=== PATIENT | male | born 1960 | race Caucasian/White ===

== ENCOUNTER → 2016-08-13 | Outpatient (CLI) | payer OTHER | END | disposition home or self-care (01) | LOC: PTMAIN 08:38 | PROVIDERS: ATTEND Otolaryngology | DX: K21.9 Gastro-esophageal reflux disease without esophagitis (principal); R05 Cough | CPT/HCPCS: 31579 ==

== ENCOUNTER → 2016-10-07 | Outpatient (CLI) | payer OTHER ==
--- NOTE | 2016-10-07 15:56 | CT ---
EXAMINATION TYPE: CT chest wo con DATE OF EXAM: 10/07/2016 3:20 PM COMPARISON: NONE HISTORY: History of asthma CT DLP: 1366.3 mGycm, Automated exposure control for dose reduction was used. CONTRAST: None TECHNIQUE: Axial images were obtained at 1 mm thick sections at 10 mm intervals. This will limit po rtions of the examination which may not be visualized within the [id number]. Images were obtained in the prone and supine views. FINDINGS: Portion of the thyroid visualized is normal. No suspicious nodules or masses are evident. No focal infiltrates are evident. No suspicious change p cecily and supine imaging. No bronchiectasis is evident No enlarged mediastinal or hilar adenopathy is evident. The ascending aorta diameter at the level o f the main pulmonary artery is 3.5 cm. The main pulmonary artery diameter at the bifurcation is 2.9 cm. Coronary artery calcification is present. Limited CT sections are obtained through the upper abdomen. Abdomen is essentially unremarkable. Note is made of a filter within the inferior vena cava. IMPRESSIONS: 1. Normal High Resolution Chest CT.
== END | disposition home or self-care (01) ==
LOC: RADCTMAIN 15:01
PROVIDERS: ATTEND Internal Medicine
DX: R05 Cough (principal)
CPT/HCPCS: 71250

== ENCOUNTER → 2018-06-27 | Outpatient (CLI) | payer OTHER ==
--- NOTE | 2018-06-27 14:19 | US ---
EXAMINATION TYPE: US venous doppler duplex LE RT DATE OF EXAM: 06/27/2018 1:51 PM COMPARISON: NONE CLINICAL HISTORY: pain right calf M79.661. Right lower leg pain SIDE PERFORMED: Right TECHNIQUE: The lower extremity deep venous system is examined utilizing real time linear array sonog alize with graded compression, doppler sonography and color-flow sonography. VESSELS IMAGED: External Iliac Vein (EIV) Common Femoral Vein Deep Femoral Vein Greater Saphenous Vein * Femoral Vein Popliteal Vein Small Saphenous Vein * Proximal Calf Veins (* superficial vessels) Technically difficult study due to patient body habitus and leg swelling Right Leg: Appears negative for DVT, thrombus seen within superficial vessels at patient area of sharath n. Grayscale, color doppler, spectral doppler imaging performed of the deep veins of the right lower ext remity. There is normal flow, compressibility, vascular waveforms. IMPRESSION: No ultrasound evidence for acute DVT in the right lower extremity. Superficial thrombus identified towards end of study at calf level.
== END | disposition home or self-care (01) ==
LOC: RADUSWWP 13:14
PROVIDERS: ATTEND Family Medicine
DX: I82.4Z1 Acute embolism and thrombosis of unspecified deep veins of right distal lower extremity (principal)

== ENCOUNTER 2018-07-12 01:59 | Emergency (ER) | payer OTHER ==
[2018-07-12 02:14] VITALS: TEMP 98
[2018-07-12 02:41] LABS: Basophils # (A) 0.1 k/uL (0-0.2); Basophils % (A) 1 %; Eosinophils # (A) 0.3 k/uL (0-0.7); Eosinophils % (A) 2 %; HCT 49.3 % (39.0-53.0); HGB 15.5 gm/dL (13.0-17.5); Lymphocytes # (A) 1.6 k/uL (1.0-4.8); Lymphocytes % (A) 14 %; MCH 31.1 pg (25.0-35.0); MCHC 31.4 g/dL (31.0-37.0); MCV 99.1 fL (80.0-100.0); Mean Platelet Volume 7.4; Monocytes # (A) 0.6 k/uL (0-1.0); Monocytes % (A) 5 %; Neutrophils # (A) 9.1 k/uL (1.3-7.7); Neutrophils % (A) 76 %; Platelet Count 170 k/uL (150-450); RBC 4.97 m/uL (4.30-5.90); RDW 13.6 % (11.5-15.5); WBC 11.9 k/uL (3.8-10.6)
[2018-07-12 02:50] LABS: ALT 34 U/L (21-72); AST 22 U/L (17-59); Alkaline Phosphatase 65 U/L (38-126); Anion Gap 12 mmol/L; Blood Urea Nitrogen 24 mg/dL (9-20); Calcium 9.3 mg/dL (8.4-10.2); Carbon Dioxide 19 mmol/L (22-30); Chloride 104 mmol/L (98-107); Glucose 223 mg/dL (74-99); Magnesium 1.6 mg/dL (1.6-2.3); Potassium 4.2 mmol/L (3.5-5.1); Sodium 135 mmol/L (137-145); Total Bilirubin 1.1 mg/dL (0.2-1.3); Total Protein 6.6 g/dL (6.3-8.2)
--- NOTE | 2018-07-12 02:50 | ED ---
Back Pain HPI - General Chief Complaint: Back Pain/Injury Stated Complaint: Back Pain Time Seen by Provider: 07/12/18 02:24 Source: patient Limitations: no limitations - History of Present Illness Initial Comments: This patient is a 57-year-old man who presents with complaint of low back pain and swelling of his legs. The patient states that the pain started yesterday in the morning probably around 18 hours ago. He states that when he woke up she felt pain in his low back, all across both sides, and he was having an urge to defecate. He states that he attempted to have bowel movement but was not able to pass any stool. He states that the symptoms continued throughout the course of the day and into the night. The patient states that when he went to go to bed tonight he was getting undressed and noticed that both of his legs were dark and there was some swelling. The patient states that the pain has continued throughout the day. It is somewhat better when he is resting, and he states that it gets worse if he stands or tries to walk. He states that it feels like both of his legs and buttocks. Having terrible cramps when he stands. Complaint: back pain Onset/Timin -: hour(s) Similar Symptoms Previously: No Place: home Radiation: left leg, right leg Severity: moderate Quality: aching, other (Cramping) Consistency: intermittent Improves With: other (Resting) Worsens With: walking, other (Standing) - Related Data Home Medications Medication Instructions Recorded Confirmed Amoxic-Pot Clav 875-125Mg 1 tab PO Q12HR 09/02/15 09/02/15 [Augmentin 875-125] Allergies Allergy/AdvReac Type Severity Reaction Status Date / Time No Known Allergies Allergy Verified 07/12/18 02:14 Review of Systems ROS Statement: Those systems with pertinent positive or pertinent negative responses have been documented in the HPI. ROS Other: All systems not noted in ROS Statement are negative. Constitutional: Denies: fever, chills, weakness Respiratory: Denies: cough, dyspnea Cardiovascular: Denies: chest pain, palpitations, edema, syncope Gastrointestinal: Reports: other (Urge to defecate). Denies: abdominal pain, nausea, vomiting, melena, hematochezia Genitourinary: Denies: dysuria, hematuria, testicular pain, testicular mass Musculoskeletal: Reports: as per HPI, back pain Skin: Denies: rash Neurological: Denies: weakness, numbness, paresthesias Hematological/Lymphatic: Denies: easy bleeding Past Medical History Past Medical History: No Reported History History of Any Multi-Drug Resistant Organisms: None Reported Additional Past Surgical History / Comment(s): gastric bypass 2002, kyphoplasty , contracture fixed to right hand, Past Psychological History: No Psychological Hx Reported Smoking Status: Never smoker Past Alcohol Use History: Daily Past Drug Use History: None Reported General Exam Limitations: no limitations General appearance: alert, in no apparent distress Head exam: Present: atraumatic, normocephalic Eye exam: Present: normal appearance. Absent: scleral icterus, conjunctival injection ENT exam: Present: normal oropharynx Neck exam: Present: normal inspection, full ROM Respiratory exam: Present: normal lung sounds bilaterally. Absent: respiratory distress, wheezes, rales, rhonchi, stridor Cardiovascular Exam: Present: regular rate, normal rhythm, normal heart sounds. Absent: systolic murmur, diastolic murmur, rubs, gallop GI/Abdominal exam: Present: soft. Absent: distended, tenderness, guarding, rebound, rigid, mass, pulsatile mass, hernia Extremities exam: Present: pedal edema, other (Patient has hyperemia and edema to the bilateral lower extremities. There is delayed capillary refill. Dorsalis pedis pulse is normal in strength to the right, left is minimally diminished.). Absent: calf tenderness Back exam: Present: normal inspection. Absent: tenderness, CVA tenderness (R) Neurological exam: Present: alert Skin exam: Present: warm, dry, intact, other (See above). Absent: rash Course Vital Signs 07/12/18 07/12/18 07/12/18 02:09 03:00 04:30 Temperature 98.0 F Pulse Rate 85 80 87 Respiratory 17 16 16 Rate Blood Pressure 131/66 152/61 152/83 O2 Sat by Pulse 95 99 99 Oximetry 07/12/18 05:20 Temperature Pulse Rate 90 Respiratory Rate Blood Pressure 161/78 O2 Sat by Pulse 95 Oximetry Medical Decision Making - Medical Decision Making Further history revealed that the patient was having some right calf pains approximately 2 weeks ago and had been seen for an ultrasound to rule out DVT. This was reported to be negative. The patient states she has continued to have some intermittent right leg symptoms prior to the onset of this pain. His d- dimer is strongly positive. Patient has clinical presentation suspicious for probable DVT which may have migrated and collected in his IVC filter. Patient started on heparin protocol There does not appear to be arterial insufficiency. Case discussed with Dr. Wyatt. He recommends the patient be transferred for higher level of care for vascular surgery. Discussed case with the patient and his and they request [facility]. Case discussed with Dr. Meza, who will accept transfer. - Lab Data Result diagrams: 07/12/18 02:26 07/12/18 02:26 Lab Results 07/12/18 07/12/18 07/12/18 Range/Units 02:26 02: 02:26 WBC 11.9 H (3.8-10.6) k/uL RBC 4.97 (4.30-5.90) m/uL Hgb 15.5 (13.0-17.5) gm/dL Hct 49.3 (39.0-53.0) % MCV 99.1 (80.0-100.0) fL MCH 31.1 (25.0-35.0) pg MCHC 31.4 (31.0-37.0) g/dL RDW 13.6 (11.5-15.5) % Plt Count 170 (150-450) k/uL Neutrophils % 76 % Lymphocytes % 14 % Monocytes % 5 % Eosinophils % 2 % Basophils % 1 % Neutrophils # 9.1 H (1.3-7.7) k/uL Lymphocytes # 1.6 (1.0-4.8) k/uL Monocytes # 0.6 (0-1.0) k/uL Eosinophils # 0.3 (0-0.7) k/uL Basophils # 0.1 (0-0.2) k/uL PT (9.0-12.0) sec INR (<1.2) APTT (22.0-30.0) sec D-Dimer (<0.60) mg/L FEU Sodium 135 L (137-145) mmol/L Potassium 4.2 (3.5-5.1) mmol/L Chloride 104 (98-107) mmol/L Carbon Dioxide 19 L (22-30) mmol/L Anion Gap 12 mmol/L BUN 24 H (9-20) mg/dL Creatinine 0.83 (0.66-1.25) mg/dL Est GFR (CKD-EPI)AfAm >90 (>60 ml/min/1.73 sqM) Est GFR (CKD-EPI)NonAf >90 (>60 ml/min/1.73 sqM) Glucose 223 H (74-99) mg/dL Calcium 9.3 (8.4-10.2) mg/dL Magnesium 1.6 (1.6-2.3) mg/dL Total Bilirubin 1.1 (0.2-1.3) mg/dL AST 22 (17-59) U/L ALT 34 (21-72) U/L Alkaline Phosphatase 65 (38-126) U/L Total Creatine Kinase 47 L (55-170) U/L CK-MB (CK-2) 0.4 (0.0-2.4) ng/mL CK-MB (CK-2) Rel Index 0.9 Troponin I <0.012 (0.000-0.034) ng/mL Total Protein 6.6 (6.3-8.2) g/dL Albumin 4.0 (3.5-5.0) g/dL 07/12/18 Range/Units 02:26 WBC (3.8-10.6) k/uL RBC (4.30-5.90) m/uL Hgb (13.0-17.5) gm/dL Hct (39.0-53.0) % MCV (80.0-100.0) fL MCH (25.0-35.0) pg MCHC (31.0-37.0) g/dL RDW (11.5-15.5) % Plt Count (150-450) k/uL Neutrophils % % Lymphocytes % % Monocytes % % Eosinophils % % Basophils % % Neutrophils # (1.3-7.7) k/uL Lymphocytes # (1.0-4.8) k/uL Monocytes # (0-1.0) k/uL Eosinophils # (0-0.7) k/uL Basophils # (0-0.2) k/uL PT 11.0 (9.0-12.0) sec INR 1.0 (<1.2) APTT 23.2 (22.0-30.0) sec D-Dimer 7.52 H (<0.60) mg/L FEU Sodium (137-145) mmol/L Potassium (3.5-5.1) mmol/L Chloride (98-107) mmol/L Carbon Dioxide (22-30) mmol/L Anion Gap mmol/L BUN (9-20) mg/dL Creatinine (0.66-1.25) mg/dL Est GFR (CKD-EPI)AfAm (>60 ml/min/1.73 sqM) Est GFR (CKD-EPI)NonAf (>60 ml/min/1.73 sqM) Glucose (74-99) mg/dL Calcium (8.4-10.2) mg/dL Magnesium (1.6-2.3) mg/dL Total Bilirubin (0.2-1.3) mg/dL AST (17-59) U/L ALT (21-72) U/L Alkaline Phosphatase (38-126) U/L Total Creatine Kinase (55-170) U/L CK-MB (CK-2) (0.0-2.4) ng/mL CK-MB (CK-2) Rel Index Troponin I (0.000-0.034) ng/mL Total Protein (6.3-8.2) g/dL Albumin (3.5-5.0) g/dL Critical Care Time Critical Care Time: Yes (40 minutes) Disposition Clinical Impression: Leg pain, Elevated d-dimer, 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 Specs Out of Hospital Transfer - Requested Specifics: Other Emergency Center
[2018-07-12 02:56] LABS: Creatine Kinase 47 U/L (55-170)
[2018-07-12 03:09] LABS: Creatine Kinase MB 0.4 ng/mL (0.0-2.4); Troponin I <0.012 ng/mL (0.000-0.034)
[2018-07-12 03:18] LABS: Partial Thromboplastin Time 23.2 sec (22.0-30.0)
[2018-07-12 03:30] LABS: D-Dimer 7.52 mg/L FEU (<0.60)
[2018-07-12] MEDS ORDERED: HEPARIN SODIUM,PORCINE 10,000 UNIT/ML 1 ML VIAL IV ONE (03:31)
[2018-07-12] MEDS ORDERED: HEPARIN SODIUM,PORCINE 5,000 UNIT/ML 1 ML VIAL IV PRN (03:31)
--- NOTE | 2018-07-12 03:33 | CT ---
EXAM: CT Angiography Abdomen and Pelvis Without And With Intravenous Contrast CLINICAL HISTORY: ITS.REASON CT Reason: Pain TECHNIQUE: Axial computed tomographic angiography images of the abdomen and pelvis without and with intravenous contrast. CTDI is 14.8 mGy and DLP is 1025 mGy-cm. This CT exam was performed using one or more of the following dose reduction techniques: automated exposure control, adjustment of the mA and/or kV according to patient size, and/or use of iterative reconstruction technique. MIP reconstructed images were created and reviewed. COMPARISON: No relevant prior studies available. FINDINGS: VASCULATURE: Aorta: Mild calcification of the abdominal aorta. No abdominal aortic aneurysm. No dissection. Celiac trunk and mesenteric arteries: No acute findings. No occlusion or significant stenosis. Renal arteries: No acute findings. No occlusion or significant stenosis. Iliac arteries: No acute findings. No occlusion or significant stenosis. Inferior vena cava: IVC filter in position. Lung bases: Unremarkable. No mass. No consolidation. ABDOMEN: Liver: Unremarkable. No mass. Gallbladder and bile ducts: Cholelithiasis within a mildly distended gallbladder. No ductal dilation. Pancreas: Unremarkable. No ductal dilation. No mass. Spleen: Unremarkable. No splenomegaly. Adrenals: 12 mm left adrenal presumed adenoma. Kidneys and ureters: 10 mm calculus either at the right ureterovesicular junction or layering within the bladder without hydronephrosis. 5 mm nonobstructing right renal calculus. Stomach and bowel: Prior gastric surgery. No obstruction. No mucosal thickening. PELVIS: Appendix: No findings to suggest acute appendicitis. Bladder: Mild diffuse bladder wall thickening is nonspecific but can be seen in cystitis. No stones. Reproductive: Unremarkable as visualized. ABDOMEN and PELVIS: Intraperitoneal space: Unremarkable. No significant fluid collection. No free air. Bones/joints: Treated compression fracture of the L1 vertebral body with marked bony dorsal displacement that results in at least moderate spinal canal stenosis. No dislocation. Soft tissues: There is small fat-containing umbilical hernia. Lymph nodes: Unremarkable. No enlarged lymph nodes. IMPRESSION: 1. No evidence of abdominal aortic aneurysm or dissection. 2. Cholelithiasis within a mildly distended gallbladder. This can be further characterized with ultrasound as clinically indicated. 3. 12 mm left adrenal presumed adenoma. 4. 10 mm calculus either at the right ureterovesicular junction or layering within the bladder without hydronephrosis. 5. 5 mm nonobstructing right renal calculus. 6. Mild diffuse bladder wall thickening is nonspecific but can be seen in cystitis. 7. Treated compression fracture of the L1 vertebral body with marked bony dorsal displacement that results in at least moderate spinal canal stenosis. This could be further characterized with MRI as clinically indicated. EXAM: CT Angiography Chest Without And With Intravenous Contrast CLINICAL HISTORY: ITS.REASON CT Reason: Pain TECHNIQUE: Axial computed tomographic angiography images of the chest without and with intravenous contrast using pulmonary embolism protocol. CTDI is 19. 5 mGy and DLP is 1453 mGy-cm. This CT exam was performed using one or more of the following dose reduction techniques: automated exposure control, adjustment of the mA and/or kV according to patient size, and/or use of iterative reconstruction technique. MIP reconstructed images were created and reviewed. COMPARISON: No relevant prior studies available. FINDINGS: Pulmonary arteries: Grossly unremarkable. Aorta: Mild calcification of the thoracic aorta. No thoracic aortic aneurysm. Lungs: 2 mm solid pulmonary nodule in the right upper lobe (series 506 image 45). Pleural space: Unremarkable. No significant effusion. No pneumothorax. Heart: Severe coronary artery calcification. No significant pericardial effusion. No evidence of RV dysfunction. Bones/joints: No acute fracture. No dislocation. Soft tissues: Unremarkable. Lymph nodes: Unremarkable. No enlarged lymph nodes. IMPRESSION: 1. No evidence of thoracic aortic intramural hematoma, aneurysm, or dissection. 2. Severe coronary artery calcification. 3. 2 mm solid pulmonary nodule in the right upper lobe (series 506 image 45). ACR White Paper guidelines (Jennahonazanin, et al. Radiology 2017; 284(1): 228-43) suggest the following. For low-risk patients, no follow-up is necessary. For high-risk patients (smoking history or other known risk factors) an optional chest CT at 12 months could be performed.
[2018-07-12] MEDS ORDERED: HEPARIN SOD,PORK IN 0.45% NACL 25,000 UNIT in 0.45% NACL 1 250ML.BAG IV SCH (03:45)
[2018-07-12] MEDS ORDERED: MORPHINE SULFATE 4 MG/ML SYRINGE IVP STA (05:16)
[2018-07-12 05:23] VITALS: BP 161/78; PULSE 90
[2018-07-12 05:30] VITALS: RESP 16
== END 2018-07-12 05:37 | disposition short-term general hospital (02) ==
LOC: EC 01:59
DX: I80.203 Phlebitis and thrombophlebitis of unspecified deep vessels of lower extremities, bilateral (principal); R79.1 Abnormal coagulation profile; M54.5 Low back pain; Z98.890 Other specified postprocedural states
CPT/HCPCS: 99284; 96365; 96366; 96375; 96376; 36415; 85379; 80053; 82550; 82553; 83735; 84484; 85025; 85610; 85730; 71275; 74174; J2270; J1644 ×2; Q9967

== ENCOUNTER → 2018-08-08 | Outpatient (CLI) | payer OTHER ==
--- NOTE | 2018-08-09 08:09 | US ---
EXAMINATION TYPE: US scrotum with doppler. Grayscale and color Doppler Duplex imaging performed of t he scrotum. DATE OF EXAM: 08/08/2018 COMPARISON: NONE CLINICAL HISTORY: N50.89 Other specified disorders of the male genit. Discomfort during ejaculation EXAM MEASUREMENTS: TESTICLES: Right Testicle: 2.1 x 1.2 x 1.5 cm Left Testicle: 2.2 x 1.2 x 1.8 cm EPIDIDYMIS HEAD: Right Epididymis: 0.7 x 1.5 x 1.2 cm Left Epididymis: 0.6 x 1.0 x 1.2 cm Doppler performed to assess for testicular vascularity; good bilateral color flow and waveforms are s een. There is no evidence of testicular torsion. Presence of hydroceles: no Presence of varicoceles: no Right epididymis: Multiple hypoechoic areas measuring up to 1.2 cm with increased through transmissio n most commonly representing spermatoceles. These could also represent complex epididymal cysts. Dawn tary left epididymal cyst is seen. Multiple microcalcifications seen within bilateral testicles IMPRESSION: 1. Multiple complex right epididymal lesions favored to represent spermatoceles or less likely comple x epididymal cysts. Solitary simple appearing left epididymal cyst is also seen. 2. Bilateral microlithiasis.
== END | disposition home or self-care (01) ==
LOC: RADUSWWP 15:55
PROVIDERS: ATTEND Family Medicine
DX: N50.3 Cyst of epididymis (principal)
CPT/HCPCS: 76870; 93975

== ENCOUNTER → 2018-11-04 | Outpatient (CLI) | payer OTHER ==
[2018-11-04 17:39] LABS: African American GFR (CKD) >90 (>60 ml/min/1.73 sqM); Blood Urea Nitrogen 10 mg/dL (9-20)
--- NOTE | 2018-11-04 19:28 | CT ---
EXAMINATION TYPE: CT urogram wo/w con DATE OF EXAM: 11/04/2018 COMPARISON: None HISTORY: Woo hematuria. CT DLP: 3932 mGycm, Automated Exposure Control for Dose Reduction was Utilized. CONTRAST: CT scan of the abdomen and pelvis is performed with oral and without and with IV Contrast, patient injected with 100ml mL of Isovue 300. FINDINGS: LIVER/GB: No significant abnormality is appreciated. PANCREAS: No significant abnormality is seen. SPLEEN: No significant abnormality is seen. ADRENALS: No significant abnormality is seen. KIDNEYS AND URETERS AND BLADDER: There is no hydronephrosis or hydroureter. There is a 6 mm nonobstructing calcification in the upper pole collecting system on the right. A 3 mm nonobstructing calcification is seen in the upper pole collecting system on the left. Urinary bladder unremarkable. PROSTATE/SEMINAL VESICLES: No gross abnormality seen. BOWEL: No significant abnormality is seen. LYMPH NODES: No greater than 1cm abdominal or pelvic lymph nodes are appreciated. OSSEOUS STRUCTURES: No acute findings. OTHER: Prominent left and right coronary calcifications noted. No acute vascular findings. IMPRESSION: 1. NO OBSTRUCTIVE UROPATHY. 2. BILATERAL NONOBSTRUCTING UROLITHS.
== END | disposition home or self-care (01) ==
LOC: RADCTMAIN 16:45
PROVIDERS: ATTEND Family Medicine
DX: N20.9 Urinary calculus, unspecified (principal)
CPT/HCPCS: 82565; 84520; 74178; 36415; 74400; Q9967

== ENCOUNTER → 2019-01-04 | Outpatient (CLI) | payer OTHER ==
--- NOTE | 2019-01-04 08:04 | US ---
EXAMINATION TYPE: US duplex aorta DATE OF EXAM: 01/04/2019 COMPARISON: 11/04/2018 CT CLINICAL HISTORY: I25.10 Atherosclerotic heart disease of [place]. xray at chiropractor showed possibl e AAA, no symptoms, CT in 07/12 showed normal caliber, large body habitus EXAM MEASUREMENTS: Abdominal Aorta: Proximal: bowel gas obscures view Mid: 2.2 x 2.3cm Distal: 1.7 x 1.7cm Bifurcation: bowel gas obscures view Difficult to visualize full length of aorta due to bowel gas and habitus, but areas seen appeared to have normal caliber. IMPRESSION: The mid and distal abdominal aorta are within normal limits of size and do not approach s ize criteria for aneurysmal dilatation however the bifurcation and proximal abdominal aorta are obscu red by bowel gas. Please correlate with the outside x-ray for location of questioned aneurysm. Of not e on the CT dated 11/04/2018 there is no evidence of aneurysmal dilatation of the abdominal aorta.
== END | disposition home or self-care (01) ==
LOC: RADUSWWP 06:48
PROVIDERS: ATTEND Family Medicine
DX: I25.10 Atherosclerotic heart disease of native coronary artery without angina pectoris (principal)
CPT/HCPCS: 93979

== ENCOUNTER 2019-05-21 17:10 | Emergency (ER) | payer OTHER ==
[2019-05-21 17:15] VITALS: TEMP 97.6
[2019-05-21 18:30] LABS: Basophils # (A) 0.1 k/uL (0-0.2); Basophils % (A) 0 %; Eosinophils # (A) 0.3 k/uL (0-0.7); Eosinophils % (A) 3 %; HCT 46.9 % (39.0-53.0); HGB 15.4 gm/dL (13.0-17.5); Lymphocytes # (A) 1.6 k/uL (1.0-4.8); Lymphocytes % (A) 16 %; MCH 31.9 pg (25.0-35.0); MCHC 32.9 g/dL (31.0-37.0); Mean Platelet Volume 7.5; Monocytes # (A) 0.6 k/uL (0-1.0); Monocytes % (A) 5 %; Neutrophils # (A) 7.6 k/uL (1.3-7.7); Neutrophils % (A) 74 %; Platelet Count 189 k/uL (150-450); RBC 4.83 m/uL (4.30-5.90); RDW 12.4 % (11.5-15.5); WBC 10.2 k/uL (3.8-10.6)
[2019-05-21 18:41] LABS: INR 0.9 (<1.2); Partial Thromboplastin Time 24.6 sec (22.0-30.0); Prothrombin Time 10.1 sec (9.0-12.0)
[2019-05-21 18:43] LABS: ALT 37 U/L (4-49); AST 45 U/L (17-59); African American GFR (CKD) >90 (>60 ml/min/1.73 sqM); Albumin 4.4 g/dL (3.5-5.0); Alkaline Phosphatase 57 U/L (38-126); Anion Gap 9 mmol/L; Blood Urea Nitrogen 15 mg/dL (9-20); Calcium 9.5 mg/dL (8.4-10.2); Carbon Dioxide 23 mmol/L (22-30); Chloride 104 mmol/L (98-107); Glucose 135 mg/dL (74-99); Non-African American GFR(CKD) >90 (>60 ml/min/1.73 sqM); Potassium 4.1 mmol/L (3.5-5.1); Sodium 136 mmol/L (137-145); Total Bilirubin 0.8 mg/dL (0.2-1.3); Total Protein 6.8 g/dL (6.3-8.2)
[2019-05-21 18:57] LABS: Appearance,Urine Cloudy (Clear); Bilirubin,Urine Negative (Negative); Blood,Urine Large (Negative); Budding Yeast,Urine Rare /hpf; Color,Urine Yellow; Glucose,Urine (UA) 4+ (Negative); Ketones,Urine 1+ (Negative); Leukocyte Esterase,Urine Negative (Negative); Mucus,Urine Occasional /hpf; Nitrite,Urine Negative (Negative); Protein,Urine Negative (Negative); RBC,Urine >182 /hpf (0-5); Specific Gravity,Urine 1.021 (1.001-1.035); Urobilinogen,Urine <2.0 mg/dL (<2.0); WBC,Urine 1 /hpf (0-5)
[2019-05-21 18:58] VITALS: RESP 18
--- NOTE | 2019-05-21 19:04 | CT ---
EXAMINATION TYPE: CT abdomen pelvis w con DATE OF EXAM: 05/21/2019 COMPARISON: 11/04/2018 HISTORY: Left sided flank injury and hematuria. CT DLP: 2482.6 mGycm Automated exposure control for dose reduction was used. CONTRAST: Performed with IV Contrast, patient injected with 100ml mL of Isovue 300. Lung bases are clear. There is no pleural effusion. There are multiple surgical clips at the stomach. Spleen is intact. Liver is intact. There are probably some small gallstones.. Bile ducts are not dil ated. There is no evidence of pancreatic mass. There is no adrenal mass. Kidneys show satisfactory contrast opacification. There is no hydronephrosi s. There is inferior vena cava filter. There is 3 mm calcification posterior left kidney. Bladder distends smoothly. There is no inguinal hernia. There is no mesenteric edema. There is no asc ites or free air. There is no sign of thickened appendix. There is 50% compression fracture of L1 ella tebra with mild thoracic kyphotic deformity. Unchanged. There is vertebroplasty of L1. The bony pelvi s is intact. There is no bowel obstruction. IMPRESSION: No evidence of renal obstruction. Small gallstones. Nonobstructing small left renal calculus. No adve rse change compared to old exam.
--- NOTE | 2019-05-21 19:18 | ED ---
General Adult HPI - General Chief complaint: Fall Stated complaint: trip & fall/rib & arm pain Time Seen by Provider: 05/21/19 17:56 Source: patient, RN notes reviewed, old records reviewed Mode of arrival: ambulatory Limitations: no limitations - History of Present Illness Initial comments: 58-year-old male on Xarelto with history of DVT presenting with abdominal trauma and hematuria. Patient states that yesterday evening he was carrying a guitar, tripped and fell onto the left side of his abdomen. He had only minimal pain in the site of injury however over the course of the day today he developed hematuria. Denies flank pain. He has a history of hematuria and has seen neurology in the past. He was told he had a kidney stone at that time. He only complains of mild upper abdominal pain which is located in the left upper quadrant. No lightheadedness, no dizziness, no dyspnea. Normal bowels. No vomiting. - Related Data Home Medications Medication Instructions Recorded Confirmed Amoxic-Pot Clav 875-125Mg 1 tab PO Q12HR 09/02/15 09/02/15 [Augmentin 875-125] Allergies Allergy/AdvReac Type Severity Reaction Status Date / Time No Known Allergies Allergy Verified 05/21/19 17:15 Review of Systems ROS Statement: Those systems with pertinent positive or pertinent negative responses have been documented in the HPI. ROS Other: All systems not noted in ROS Statement are negative. Past Medical History Past Medical History: No Reported History History of Any Multi-Drug Resistant Organisms: None Reported Additional Past Surgical History / Comment(s): gastric bypass 2002, kyphoplasty, contracture fixed to right hand, Past Psychological History: No Psychological Hx Reported Smoking Status: Never smoker Past Alcohol Use History: Daily Past Drug Use History: None Reported General Exam Limitations: no limitations General appearance: alert, in no apparent distress Head exam: Present: atraumatic, normocephalic Eye exam: Present: normal appearance, PERRL ENT exam: Present: normal exam, normal oropharynx Neck exam: Present: normal inspection. Absent: tenderness, meningismus Respiratory exam: Present: normal lung sounds bilaterally, chest wall tenderness (left lower). Absent: respiratory distress, wheezes GI/Abdominal exam: Present: soft, tenderness (Minimal left upper quadrant t enderness, no external signs of trauma, no hematoma, no ecchymosis). Absent: distended, guarding, rebound Course Vital Signs 05/21/19 05/21/19 17:13 18:58 Temperature 97.6 F Pulse Rate 90 90 Respiratory 16 18 Rate Blood Pressure 153/79 150/80 O2 Sat by Pulse 95 98 Oximetry Medical Decision Making - Medical Decision Making 58-year-old male on Xarelto with minor abdominal trauma and hematuria. Patient is stable vitals, no extra signs of trauma, minimal tenderness in the left upper quadrant. Urinalysis reveals [address] is performed with IV contrast, negative for any acute traumatic injury, he has a small left renal stone which is nonobstructing. He has a stable hemoglobin. He will follow-up with his primary care physician and urologist. Diagnosis: Abdominal contusion, hematuria. - Lab Data Result diagrams: 05/21/19 18:16 05/21/19 18:16 Lab Results 05/21/19 05/21/19 05/21/19 Range/Units 18:16 18:16 18:16 WBC 10.2 (3.8-10.6) k/uL RBC 4.83 (4.30-5.90) m/uL Hgb 15.4 (13.0-17.5) gm/dL Hct 46.9 (39.0-53.0) % MCV 97.0 (80.0-100.0) fL MCH 31.9 (25.0-35.0) pg MCHC 32.9 (31.0-37.0) g/dL RDW 12.4 (11.5-15.5) % Plt Count 189 (150-450) k/uL Neutrophils % 74 % Lymphocytes % 16 % Monocytes % 5 % Eosinophils % 3 % Basophils % 0 % Neutrophils # 7.6 (1.3-7.7) k/uL Lymphocytes # 1.6 (1.0-4.8) k/uL Monocytes # 0.6 (0-1.0) k/uL Eosinophils # 0.3 (0-0.7) k/uL Basophils # 0.1 (0-0.2) k/uL PT 10.1 (9.0-12.0) sec INR 0.9 (<1.2) APTT 24.6 (22.0-30.0) sec Sodium 136 L (137-145) mmol/L Potassium 4.1 (3.5-5.1) mmol/L Chloride 104 (98-107) mmol/L Carbon Dioxide 23 (22-30) mmol/L Anion Gap 9 mmol/L BUN 15 (9-20) mg/dL Creatinine 0.54 L (0.66-1.25) mg/dL Est GFR (CKD-EPI)AfAm >90 (>60 ml/min/1.73 sqM) Est GFR (CKD-EPI)NonAf >90 (>60 ml/min/1.73 sqM) Glucose 135 H (74-99) mg/dL Calcium 9.5 (8.4-10.2) mg/dL Total Bilirubin 0.8 (0.2-1.3) mg/dL AST 45 (17-59) U/L ALT 37 (4-49) U/L Alkaline Phosphatase 57 (38-126) U/L Total Protein 6.8 (6.3-8.2) g/dL Albumin 4.4 (3.5-5.0) g/dL Urine Color Urine Appearance (Clear) Urine pH (5.0-8.0) Ur Specific [place] (1.001-1.035) Urine Protein (Negative) Urine Glucose (UA) (Negative) Urine Ketones (Negative) Urine Blood (Negative) Urine Nitrite (Negative) Urine Bilirubin (Negative) Urine Urobilinogen (<2.0) mg/dL Ur Leukocyte Esterase (Negative) Urine RBC (0-5) /hpf Urine WBC (0-5) /hpf Urine Mucus (None) /hpf Urine Yeast (Budding) (None) /hpf 05/21/19 Range/Units 18:16 WBC (3.8-10.6) k/uL RBC (4.30-5.90) m/uL Hgb (13.0-17.5) gm/dL Hct (39.0-53.0) % MCV (80.0-100.0) fL MCH (25.0-35.0) pg MCHC (31.0-37.0) g/dL RDW (11.5-15.5) % Plt Count (150-450) k/uL Neutrophils % % Lymphocytes % % Monocytes % % Eosinophils % % Basophils % % Neutrophils # (1.3-7.7) k/uL Lymphocytes # (1.0-4.8) k/uL Monocytes # (0-1.0) k/uL Eosinophils # (0-0.7) k/uL Basophils # (0-0.2) k/uL PT (9.0-12.0) sec INR (<1.2) APTT (22.0-30.0) sec Sodium (137-145) mmol/L Potassium (3.5-5.1) mmol/L Chloride (98-107) mmol/L Carbon Dioxide (22-30) mmol/L Anion Gap mmol/L BUN (9-20) mg/dL Creatinine (0.66-1.25) mg/dL Est GFR (CKD-EPI)AfAm (>60 ml/min/1.73 sqM) Est GFR (CKD-EPI)NonAf (>60 ml/min/1.73 sqM) Glucose (74-99) mg/dL Calcium (8.4-10.2) mg/dL Total Bilirubin (0.2-1.3) mg/dL AST (17-59) U/L ALT (4-49) U/L Alkaline Phosphatase (38-126) U/L Total Protein (6.3-8.2) g/dL Albumin (3.5-5.0) g/dL Urine Color Yellow Urine Appearance Cloudy (Clear) Urine pH 5.0 (5.0-8.0) Ur Specific [place] 1.021 (1.001-1.035) Urine Protein Negative (Negative) Urine Glucose (UA) 4+ H (Negative) Urine Ketones 1+ H (Negative) Urine Blood Large H (Negative) Urine Nitrite Negative (Negative) Urine Bilirubin Negative (Negative) Urine Urobilinogen <2.0 (<2.0) mg/dL Ur Leukocyte Esterase Negative (Negative) Urine RBC >182 H (0-5) /hpf Urine WBC 1 (0-5) /hpf Urine Mucus Occasional H (None) /hpf Urine Yeast (Budding) Rare H (None) /hpf Disposition Clinical Impression: Abdominal wall contusion, Hematuria Disposition: HOME SELF-CARE Condition: Good Instructions (If sedation given, give patient instructions): Contusion in Adults (ED), Hematuria (ED) Is patient prescribed a controlled substance at d/c from ED?: No Referrals: Ernie Pop MD [Primary Care Provider] - 1-2 days Jeff George MD [STAFF PHYSICIAN] - 1-2 days Time of Disposition: 19:18
[2019-05-21 19:29] VITALS: BP 153/78; PULSE 78
== END 2019-05-21 19:27 | disposition home or self-care (01) ==
LOC: EC 17:10
DX: S30.1XXA Contusion of abdominal wall, initial encounter (principal); R31.9 Hematuria, unspecified; N20.0 Calculus of kidney; Z79.01 Long term (current) use of anticoagulants; Z86.718 Personal history of other venous thrombosis and embolism; W01.0XXA Fall on same level from slipping, tripping and stumbling without subsequent striking against object, initial encounter; Y93.89 Activity, other specified
CPT/HCPCS: 36415; 80053; 85025; 85610; 85730; 81001; 74177; 99284; Q9967

== ENCOUNTER → 2020-05-15 | Outpatient (CLI) | payer OTHER ==
--- NOTE | 2020-05-15 09:45 | US ---
EXAMINATION TYPE: US venous doppler duplex LE DATE OF EXAM: 05/15/2020 9:34 AM COMPARISON: NONE CLINICAL HISTORY: I82.409 deep veins thrombosis of lower extremity. Hx SVT in right leg, on blood thi nners. No redness. No swelling. SIDE PERFORMED: Bilateral TECHNIQUE: The lower extremity deep venous system is examined utilizing real time linear array sonog alize with graded compression, doppler sonography and color-flow sonography. VESSELS IMAGED: Common Femoral Vein Deep Femoral Vein Greater Saphenous Vein * Femoral Vein Popliteal Vein Small Saphenous Vein * Proximal Calf Veins (* superficial vessels) Right Leg: Negative for DVT Left Leg: Negative for DVT IMPRESSION: No evidence for DVT at this time.
== END | disposition home or self-care (01) ==
LOC: RADUSWWP 09:05
PROVIDERS: ATTEND Family Medicine
DX: I82.403 Acute embolism and thrombosis of unspecified deep veins of lower extremity, bilateral (principal)
CPT/HCPCS: 93970

== ENCOUNTER → 2021-04-02 | Outpatient (CLI) | payer OTHER ==
[~2021-04-02] MED LIST: BAMLANIVIMAB (EUA) 700 MG, ETESEVIMAB (EUA) 1,400 MG in SODIUM CHLORIDE 0.9% 50 ML IVPB NR; SODIUM CHLORIDE 0.9% 50 ML IVPB NR; SODIUM CHLORIDE 0.9% 500 ML 500 ML in EMPTY BAG 1 BAG IV PRN
[2021-04-02 08:52] VITALS: RESP 16
[2021-04-02 09:19] VITALS: BP 143/69; PULSE 84; TEMP 98.1
== END ==
LOC: PROCWHC3 07:09
PROVIDERS: ATTEND Family Medicine
DX: U07.1 COVID-19 (principal); E66.9 Obesity, unspecified; E11.9 Type 2 diabetes mellitus without complications; Z68.38 Body mass index [BMI] 38.0-38.9, adult
CPT/HCPCS: 96360; J3490; M0245; 96367

== ENCOUNTER → 2023-10-07 | Outpatient (CLI) | payer BC ==
--- NOTE | 2023-10-07 17:59 | US ---
EXAMINATION TYPE: US kidneys/renal and bladder DATE OF EXAM: 10/07/2023 COMPARISON: NONE CLINICAL INDICATION: Male, 62 years old with history of R31.9 HEMATURIA, UNSPECIFIED; gross hematuria for a few months EXAM MEASUREMENTS: Right Kidney: 12.4 x 6.0 x 5.2 cm Left Kidney: 11.7 x 5.8 x 4.7 cm Right Kidney: stones, largest = 1.1cm Left Kidney: stones, largest = 1.0cm Bladder: appears wnl Bilateral Jets seen: no IMPRESSION: 1. Bilateral nephrolithiasis as described above. 2. No solid renal mass or hydronephrosis.
== END | disposition home or self-care (01) ==
LOC: RADUSWWP 09:37
PROVIDERS: ATTEND Family Medicine
DX: N20.0 Calculus of kidney (principal)
CPT/HCPCS: 76770

== ENCOUNTER → 2024-03-22 | Outpatient (CLI) | payer BC ==
--- NOTE | 2024-03-22 11:03 | US ---
EXAMINATION TYPE: US gallbladder DATE OF EXAM: 03/22/2024 COMPARISON: CT 2018 CLINICAL INDICATION: Male, 63 years old with history of R74.8 ABNORMAL LEVELS OF OTHER SERUM ENZYMES; Hx Gallstones seen in prevoius CT TECHNIQUE: Grayscale and color Doppler imaging of the right upper quadrant was performed. FINDINGS: EXAM MEASUREMENTS: Liver Length: 16.4 cm Gallbladder Wall: 0.2 cm CBD: 0.6 cm Right Kidney: 12.1 x 5.6 x 5.7 cm GUM REMOVER NOTES:Suboptimal due to patient body habitus Pancreas: Head and tail obscured by overlying bowel gas, echogenic in appearance Liver: Increased attenuation, decreased visualization of vessels suggestive of fatty infiltrate. He terogenous. Gallbladder: Multiple stones and sludge Evidence for sonographic Sims's sign: neg CBD: wnl in size, limited visualization Right Kidney: Medial echogenic focus at peripheral hilum = 2.4 x 1.6 cm IMPRESSION: 1. Hepatic steatosis. 2. Cholelithiasis versus tumefactive sludge. 3. Hyperechoic focus near the right renal hilum possibly representing a location versus patient's IV C filter versus other. [facility], , 03/22/2024 11:00 AM
== END | disposition home or self-care (01) ==
LOC: RADUSWWP 08:57
PROVIDERS: ATTEND Family Medicine
CPT/HCPCS: 76705

== ENCOUNTER 2024-04-23 18:27 | Inpatient (IN) | payer BC, MEDICARE ==
--- NOTE | 2024-04-23 18:58 | ED ---
Weakness HPI - General Chief complaint: Nausea/Vomiting/Diarrhea Stated complaint: Abdominal Pain Time Seen by Provider: 04/23/24 18:53 Source: patient, RN notes reviewed, old records reviewed Mode of arrival: ambulatory Limitations: no limitations - History of Present Illness Initial comments: This is a 63-year-old male to the ER for evaluation of weakness severe weakness decreased appetite nausea vomiting no appetite for a few days now. Significant weight loss and significant lower extremity edema and swelling MD Complaint: generalized weakness, lack of energy (Significant lower extremity edema) Location: generalized, LLE, RLE Severity: severe Severity scale (1-10): 9 Consistency: constant Improves with: none Worsens with: none - Related Data Home Medications Medication Instructions Recorded Confirmed Anastrozole [Arimidex] 1 mg PO DIRECTED 04/02/21 04/02/21 Apixaban [Eliquis] 5 mg PO BID 04/02/21 04/02/21 Empagliflozin [Jardiance] 10 mg PO DAILY 04/02/21 04/02/21 Finasteride [Proscar] 5 mg PO DAILY 04/02/21 04/02/21 Montelukast [Singulair] 10 mg PO DAILY 04/02/21 04/02/21 Olmesartan [Benicar] 20 mg PO DAILY 04/02/21 04/02/21 Simvastatin 10 mg PO DAILY 04/02/21 04/02/21 Testosterone Cypionate 200 mg IM DIRECTED 04/02/21 04/02/21 [Depo-Testosterone] dexAMETHasone [Dexamethasone] 6 mg PO DIRECTED 04/02/21 04/02/21 metFORMIN HCL 500 mg PO BID 04/02/21 04/02/21 sitaGLIPtin [Januvia] 100 mg PO DAILY 04/02/21 04/02/21 Allergies Allergy/AdvReac Type Severity Reaction Status Date / Time No Known Allergies Allergy Verified 04/23/24 18:47 Review of Systems ROS Statement: Those systems with pertinent positive or pertinent negative responses have been documented in the HPI. ROS Other: All systems not noted in ROS Statement are negative. Past Medical History Past Medical History: Diabetes Mellitus, Deep Vein Thrombosis (DVT), Hyperlipidemia Additional Past Medical History / Comment(s): DVT IN 2019 History of Any Multi-Drug Resistant Organisms: None Reported Additional Past Surgical History / Comment(s): gastric bypass 2002, kyphoplasty, contracture fixed to right hand, Past Psychological History: No Psychological Hx Reported Smoking Status: Never smoker Past Alcohol Use History: Daily Past Drug Use History: None Reported General Exam Limitations: no limitations General appearance: alert, in no apparent distress Head exam: Present: atraumatic, normocephalic, normal inspection Eye exam: Present: normal appearance, PERRL, EOMI. Absent: scleral icterus, conjunctival injection, periorbital swelling ENT exam: Present: normal exam, mucous membranes moist Neck exam: Present: normal inspection. Absent: tenderness, meningismus, lymphadenopathy Respiratory exam: Present: normal lung sounds bilaterally. Absent: respiratory distress, wheezes, rales, rhonchi, stridor Cardiovascular Exam: Present: regular rate, normal rhythm, normal heart sounds. Absent: systolic murmur, diastolic murmur, rubs, gallop, clicks GI/Abdominal exam: Present: soft, normal bowel sounds. Absent: distended, tenderness, guarding, rebound, rigid Extremities exam: Present: normal inspection, full ROM, normal capillary refill. Absent: tenderness, pedal edema, joint swelling, calf tenderness Back exam: Present: normal inspection Neurological exam: Present: alert, oriented X3, CN II-XII intact Psychiatric exam: Present: normal affect, normal mood Skin exam: Present: warm, dry, intact, normal color. Absent: rash Course Vital Signs 04/23/24 04/23/24 18:48 21:06 Temperature 98.4 F Pulse Rate 100 94 Respiratory 20 18 Rate Blood Pressure 125/79 142/64 O2 Sat by Pulse 97 97 Oximetry - Reevaluation(s) Reevaluation #1: 04/23/24 19:48 Medical records reviewed Reevaluation #2: 04/23/24 22:47 Patient has no change in symptoms here in the ER Reevaluation #3: 04/23/24 22:48 Patient informed of results and questions answered Reevaluation #4: Was pt. sent in by a medical professional or institution (, PA, TEAM GUIDE, urgent care, hospital, or residential...) When possible be specific @ -no Did you speak to anyone other than the patient for history (EMS, parent, family, police, friend...)? What history was obtained from this source @ -no Did you review nursing and triage notes (agree or disagree)? Why? @ -agree Are old charts reviewed (outside hosp., previous admission, EMS record, old EKG, old radiological studies, urgent care reports/EKG's, residential records)? Report findings @ -yes Differential Diagnosis (chest pain, altered mental status, abdominal pain women, abdominal pain men, vaginal bleeding, weakness, fever, dyspnea, syncope, headache, dizziness, GI bleed, back pain, seizure, CVA, palpatations, mental health, musculoskeletal)? @ -prior EKG interpreted by me (3pts min.). @ -yes X-rays interpreted by me (1pt min.). @ -yes negative for acute disease CT interpreted by me (1pt min.). @ -no U/S interpreted by me (1pt. min.). @ -no What testing was considered but not performed or refused? (CT, X-rays, U/S, labs)? Why? @ -none What meds were considered but not given or refused? Why? @ -none Did you discuss the management of the patient with other professionals (professionals i.e. , PA, TEAM GUIDE, lab, RT, psych nurse, social service manager, proprietary trader, teacher, occupational medicine officer, telehealth case manager)? Give summary @ -no Was smoking cessation discussed for >3mins.? @ -no Was critical care preformed (if so, how long)? @ -no Were there social determinants of health that impacted care today? How? (Homelessness, low income, unemployed, alcoholism, drug addiction, transportation, low edu. Level, literacy, decrease access to med. care, retirement, rehab)? @ -none Was there de-escalation of care discussed even if they declined (Discuss DNR or withdrawal of care, Hospice)? DNR status @ -no What co-morbidities impacted this encounter? (DM, HTN, Smoking, COPD, CAD, Cancer, CVA, ARF, Chemo, Hep., AIDS, mental health diagnosis, sleep apnea, morbid obesity)? @ -none Was patient admitted / discharged? Hospital course, mention meds given and route, prescriptions, significant lab abnormalities, going to OR and other pertinent info. @ - Undiagnosed new problem with uncertain prognosis? @ -no Drug Therapy requiring intensive monitoring for toxicity (Heparin, Nitro, Insulin, Cardizem)? @ -no Were any procedures done? @ -no Diagnosis/symptom? @ - Acute, or Chronic, or Acute on Chronic? @ -Acute Uncomplicated (without systemic symptoms) or Complicated (systemic symptoms)? @ -Complicated Side effects of treatment? @ -no Exacerbation, Progression, or Severe Exacerbation? @ -exacerbation Poses a threat to life or bodily function? How? (Chest pain, USA, CO, pneumonia, PE, COPD, DKA, ARF, appy, cholecystitis, CVA, Diverticulitis, Homicidal, Suicidal, threat to staff... and all critical care pts) @ -yes Reevaluation #5: Differential Chest Pain: Stable Angina, Unstable Angina, STEMI, NSTEMI Aortic Dissection, Pneumothorax, Musculoskeletal, Esophageal Spasm GERD, Cholecystitis, Pancreatitis, Zoster, this is not meant to be an all-inclusive list. Differential Abdominal Pain Men: Appendicitis, cholecystitis, diverticulosis, ischemic bowel, pancreatitis, hepatitis, UTI, gastroenteritis, AAA, incarcerated hernia, bowel obstruction, constipation, inflammatory bowel, hepatitis, peptic ulcer disease, splenic infarction, perforated viscus, testicular torsion, this is not meant to be an all-inclusive list Differential Weakness: Hypoglycemia, shock, sepsis, hyponatremia, anemia, infection, CO, ETOH, adverse medicine reaction, overdose, stroke, this is not meant to be an all-inclusive list. - Consultations Consultation #1: Spoke with sound who agrees to admit this patient Medical Decision Making - Medical Decision Making 63 male to the ED c.o dyspnea weight gain abdominal pain back pain swelling shortness of breath with exertion and significant anasarca - Lab Data Result diagrams: 04/23/24 19:10 04/23/24 19:10 Lab Results 04/23/24 04/23/24 04/23/24 Range/Units 19:10 19:10 19:10 WBC 11.3 H (3.8-10.6) k/uL RBC 4.83 (4.30-5.90) m/uL Hgb 16.2 (13.0-17.5) gm/dL Hct 49.6 (39.0-53.0) % MCV 102.6 H (80.0-100.0) fL MCH 33.6 (25.0-35.0) pg MCHC 32.7 (31.0-37.0) g/dL RDW 12.0 (11.5-15.5) % Plt Count 232 (150-450) k/uL MPV 8.3 Neutrophils % 86 % Lymphocytes % 8 % Monocytes % 5 % Eosinophils % 1 % Basophils % 0 % Neutrophils # 9.7 H (1.3-7.7) k/uL Lymphocytes # 0.9 L (1.0-4.8) k/uL Monocytes # 0.5 (0-1.0) k/uL Eosinophils # 0.1 (0-0.7) k/uL Basophils # 0.0 (0-0.2) k/uL PT 13.5 H (10.0-12.5) sec INR 1.3 H (<1.2) APTT 26.2 (22.0-30.0) sec D-Dimer 1.09 H (<0.60) mg/L FEU Sodium 134 L (137-145) mmol/L Potassium 3.2 L (3.5-5.1) mmol/L Chloride 104 (98-107) mmol/L Carbon Dioxide 24 (22-30) mmol/L Anion Gap 6 mmol/L BUN 7 L (9-20) mg/dL Creatinine 0.66 (0.66-1.25) mg/dL Est GFR (CKD-EPI)AfAm >90 (>60 ml/min/1.73 sqM) Est GFR (CKD-EPI)NonAf >90 (>60 ml/min/1.73 sqM) Glucose 173 H (74-99) mg/dL Calcium 7.6 L (8.4-10.2) mg/dL Phosphorus 3.7 (2.5-4.5) mg/dL Magnesium 1.5 L (1.6-2.3) mg/dL Total Bilirubin 2.6 H (0.2-1.3) mg/dL AST 140 H (17-59) U/L ALT 76 H (4-49) U/L Alkaline Phosphatase 174 H (38-126) U/L Troponin I (0.000-0.034) ng/mL NT-Pro-B Natriuret Pep 238 pg/mL Total Protein 5.3 L (6.3-8.2) g/dL Albumin 2.7 L (3.5-5.0) g/dL 04/23/24 Range/Units 19:10 WBC (3.8-10.6) k/uL RBC (4.30-5.90) m/uL Hgb (13.0-17.5) gm/dL Hct (39.0-53.0) % MCV (80.0-100.0) fL MCH (25.0-35.0) pg MCHC (31.0-37.0) g/dL RDW (11.5-15.5) % Plt Count (150-450) k/uL MPV Neutrophils % % Lymphocytes % % Monocytes % % Eosinophils % % Basophils % % Neutrophils # (1.3-7.7) k/uL Lymphocytes # (1.0-4.8) k/uL Monocytes # (0-1.0) k/uL Eosinophils # (0-0.7) k/uL Basophils # (0-0.2) k/uL PT (10.0-12.5) sec INR (<1.2) APTT (22.0-30.0) sec D-Dimer (<0.60) mg/L FEU Sodium (137-145) mmol/L Potassium (3.5-5.1) mmol/L Chloride (98-107) mmol/L Carbon Dioxide (22-30) mmol/L Anion Gap mmol/L BUN (9-20) mg/dL Creatinine (0.66-1.25) mg/dL Est GFR (CKD-EPI)AfAm (>60 ml/min/1.73 sqM) Est GFR (CKD-EPI)NonAf (>60 ml/min/1.73 sqM) Glucose (74-99) mg/dL Calcium (8.4-10.2) mg/dL Phosphorus (2.5-4.5) mg/dL Magnesium (1.6-2.3) mg/dL Total Bilirubin (0.2-1.3) mg/dL AST (17-59) U/L ALT (4-49) U/L Alkaline Phosphatase (38-126) U/L Troponin I <0.012 (0.000-0.034) ng/mL NT-Pro-B Natriuret Pep pg/mL Total Protein (6.3-8.2) g/dL Albumin (3.5-5.0) g/dL - Radiology Data Radiology results: report reviewed (CT chest pelvis social pleural effusions, ultrasound lower extremity negative for DVT), image reviewed Disposition Clinical Impression: Dehydration, Gastroenteritis, Weakness Disposition: HOME SELF-CARE Condition: Fair Is patient prescribed a controlled substance at d/c from ED?: No Referrals: Ernie Pop MD [Primary Care Provider] - 1-2 days Time of Disposition: 22:50
[2024-04-23 19:38] LABS: Basophils % (A) 0 %; Eosinophils # (A) 0.1 k/uL (0-0.7); Eosinophils % (A) 1 %; HCT 49.6 % (39.0-53.0); HGB 16.2 gm/dL (13.0-17.5); Lymphocytes # (A) 0.9 k/uL (1.0-4.8); Lymphocytes % (A) 8 %; MCH 33.6 pg (25.0-35.0); MCHC 32.7 g/dL (31.0-37.0); MCV 102.6 fL (80.0-100.0); Mean Platelet Volume 8.3; Monocytes # (A) 0.5 k/uL (0-1.0); Monocytes % (A) 5 %; Neutrophils # (A) 9.7 k/uL (1.3-7.7); Neutrophils % (A) 86 %; Platelet Count 232 k/uL (150-450); RBC 4.83 m/uL (4.30-5.90); WBC 11.3 k/uL (3.8-10.6)
[2024-04-23 19:51] LABS: ALT 76 U/L (4-49); AST 140 U/L (17-59); African American GFR (CKD) >90 (>60 ml/min/1.73 sqM); Albumin 2.7 g/dL (3.5-5.0); Alkaline Phosphatase 174 U/L (38-126); Anion Gap 6 mmol/L; Blood Urea Nitrogen 7 mg/dL (9-20); Calcium 7.6 mg/dL (8.4-10.2); Carbon Dioxide 24 mmol/L (22-30); Chloride 104 mmol/L (98-107); Glucose 173 mg/dL (74-99); Magnesium 1.5 mg/dL (1.6-2.3); Non-African American GFR(CKD) >90 (>60 ml/min/1.73 sqM); Phosphorus 3.7 mg/dL (2.5-4.5); Potassium 3.2 mmol/L (3.5-5.1); Sodium 134 mmol/L (137-145); Total Bilirubin 2.6 mg/dL (0.2-1.3); Total Protein 5.3 g/dL (6.3-8.2)
[2024-04-23 19:52] LABS: INR 1.3 (<1.2); Partial Thromboplastin Time 26.2 sec (22.0-30.0); Prothrombin Time 13.5 sec (10.0-12.5)
[2024-04-23 19:59] LABS: NT-Pro-B-Type Natriuretic Pept 238 pg/mL
--- NOTE | 2024-04-23 20:24 | US ---
EXAMINATION TYPE: US venous doppler duplex LE BI DATE OF EXAM: 04/23/2024 8:13 PM COMPARISON: NONE CLINICAL INDICATION: Male, 63 years old with history of pain; swelling for 1 week, h/o dvt in right l eg 8 years ago, takes daily thinner TECHNIQUE: The lower extremity deep venous system is examined utilizing real time linear array sonog alize with graded compression, color doppler sonography, and spectral doppler. SIDE PERFORMED: Bilateral FINDINGS: VESSELS IMAGED: Common Femoral Vein Deep Femoral Vein Greater Saphenous Vein Femoral Vein Popliteal Vein Small Saphenous Vein Proximal Calf Veins Right Leg: Negative for DVT, Color Doppler imaging shows patency of the vessels. Spectral waveforms are within normal limits. Left Leg: Negative for DVT, Color Doppler imaging shows patency of the vessels. Spectral waveforms a re within normal limits. IMPRESSION: No ultrasound evidence for deep venous thrombosis. [facility], , 04/23/2024 8:21 PM
[2024-04-23] MEDS: POTASSIUM BICARBONATE/CIT AC 20 MEQ TABLET.EFF PO ONE (21:00)
[2024-04-23] MEDS: MAGNESIUM SULFATE-D5W PMX 1 GM in DEXTROSE/WATER 1 100ML.BAG IVPB ONE (21:01)
[2024-04-23] MEDS: MAGNESIUM OXIDE 400 MG TAB PO STA ×2 (21:01)
--- NOTE | 2024-04-23 21:07 | CT ---
EXAMINATION TYPE: CT angio chest DATE OF EXAM: 04/23/2024 8:56 PM COMPARISON: CT chest study 10/07/2016. CLINICAL INDICATION: Male, 63 years old with history of pain; Pt c/o severe swelling in legs and groi n, nausea, inability to eat, weight gain 7 lbs in past week despite not eating, and dizziness upon st anding. reports pt also had a trip and fall last night. TECHNIQUE/CONTRAST: CTA scan of the thorax is performed with IV Contrast, patient injected with 100ml mL of Isovue 370, M IP images are created and reviewed these are created on a separate workstation.. CT DLP: 586.7 mGycm, Automated exposure control for dose reduction was used. FINDINGS: Pulmonary Artery: There is no evidence for a filling defect within the pulmonary vasculature to sugge st acute pulmonary embolism. The pulmonary artery is mildly dilated measuring 3.3 cm in diameter. Lungs/Pleura: Trace bilateral pleural effusions with adjacent lower lobe compressive atelectasis. No pneumothorax. No suspicious pulmonary mass. Airway: Large airways are patent. Heart: Heart is within normal limits for size. Coronary artery calcifications. Vasculature: No evidence of aortic aneurysm. Mediastinum: No gross evidence of adenopathy. Musculoskeletal: Partially visualized chronic L1 vertebral body compression deformity status post ella tebral augmentation procedure. There is also mild retropulsion of the L1 vertebral body. Old left-elizabeth ed rib fracture deformities. Soft Tissues/lymph nodes: Unremarkable. Lower neck: No significant findings. Upper Abdomen: No significant findings. IMPRESSION: 1. No evidence of acute pulmonary embolism. 2. Trace bilateral pleural effusions, right greater than left with adjacent lower lobe compressive a telectasis. [facility], , 04/23/2024 9:04 PM
--- NOTE | 2024-04-23 21:14 | CT ---
EXAMINATION TYPE: CT abdomen pelvis w con DATE OF EXAM: 04/23/2024 8:56 PM COMPARISON: Previous CT abdomen/pelvis study 05/21/2019. CLINICAL INDICATION: Male, 63 years old with history of pain; Pt c/o severe swelling in legs and groi n, nausea, inability to eat, weight gain 7 lbs in past week despite not eating, and dizziness upon st anding. reports pt also had a trip and fall last night. TECHNIQUE: Axial CT abdomen pelvis w con;Sagittal and coronal reformats were created on a separate w orkstation. Contrast used:100ml mL of Isovue 370 with IV Contrast, (none if empty) Oral contrast used: without Oral Contrast (none if empty) CT DLP: 1599.8 mGycm, Automated exposure control for dose reduction was used. FINDINGS: LOWER CHEST: Trace bilateral pleural effusions partially visualized. ABDOMEN LIVER: Severe steatosis. GALLBLADDER AND BILE DUCTS: Cholelithiasis without definite CT evidence of acute cholecystitis. PANCREAS: Fatty parenchymal atrophy. No pancreatic ductal dilatation. SPLEEN: Unremarkable. ADRENAL GLANDS: Unremarkable. KIDNEYS AND URETERS: 16 mm calculus in the right renal pelvis (axial image 37) with surrounding infla mmatory changes. Additional nonthickening left renal calculus. No enhancing renal mass. PELVIS BLADDER: No evidence for wall thickening or mass given limitations of exam. REPRODUCTIVE: Unremarkable. ABDOMEN & PELVIS STOMACH AND BOWEL: Previous Ijtendra-en-Y gastric bypass. Ssmall bowel anastomotic changes noted in the m idabdomen. Wall thickening of the cecum which is indeterminate, consider outpatient and direct visual ization as clinically indicated. No evidence of bowel obstruction. PERITONEUM/RETROPERITONEUM: Small volume free fluid in the left paracolic gutter. Additionally, there is mild body wall edema/anasarca. No evidence of free air. VASCULATURE: No evidence of aortic aneurysm. IVC filter present. MUSCULOSKELETAL: No acute osseous abnormalities. Moderate to severe chronic compression deformity of the L1 vertebral body with associated retropulsion status post previous augmentation procedure. LYMPH NODES: No gross evidence for lymphadenopathy. SOFT TISSUE/ABDOMINAL WALL: Unremarkable IMPRESSION: 1. 16 mm calculus in the right renal pelvis with associated urothelial wall thickening and adjacent inflammation. 2. Severe hepatic steatosis. 3. Cholelithiasis. 4. Small volume abdominal ascites and mild diffuse body wall edema/anasarca. 5. Additional nonacute findings as above. [facility], , 04/23/2024 9:11 PM
[2024-04-23] MEDS ORDERED: LORazepam 1 MG TAB PO PRN ×3 (22:42)
[2024-04-23] MEDS ORDERED: NALOXONE 0.4 MG/ML 1 ML VIAL IV PRN (22:42)
[2024-04-23] MEDS ORDERED: LORazepam 2 MG/ML INJ IV PRN ×3 (22:42)
[2024-04-23] MEDS ORDERED: LORazepam 0.5 MG TAB PO PRN (22:42)
[2024-04-23] MEDS ORDERED: HYDROmorphone 1 MG/ML 1 ML SYRINGE IVP PRN (22:48)
[2024-04-23] MEDS: HYDROmorphone 1 MG/ML 1 ML SYRINGE IVP STA (23:15)
[2024-04-23] MEDS: ONDANSETRON 4 MG/2 ML VIAL IVP PRN (23:36)
[2024-04-24] MEDS: POTASSIUM BICARBONATE/CIT AC 20 MEQ TABLET.EFF PO ONE (01:13)
--- NOTE | 2024-04-24 01:25 | P.HPIM ---
History of Present Illness H&P Date: 04/23/24 Patient is a 63-year-old male with a PMH of A-fib on Eliquis, type II DM, and morbid obesity who presents to the emergency room with complaints of lower extremity swelling with nausea and vomiting. Patient reports that he was started on Ozempic roughly 6 months ago. He also reports that he developed nausea and vomiting roughly 4 months ago which he did not quite attribute to the Ozempic, although does state that his dose was gradually increased during this time. Patient reports losing roughly 40 pounds of weight in the last 3 to 4 months as he states that he has minimal oral intake during this time. Also reports that he has been drinking multiple mixed drinks with hard liquor nightly during this time to help him go to sleep. Reports that prior to the past 6 months, he used to only drink at most once a week a few drinks with friends. Reports that he noticed quickly worsening lower extremity swelling over the past 1 to 2 weeks. Denies decreased exercise tolerance, chest discomfort, shortness of breath does report occasional right upper quadrant abdominal pain and tenderness., 3 out of 10 at maximal intensity, which he attributes to his severe nausea and retching. Denies experiencing fever, chills, weakness, numbness, tingling, or urinary complaints. Patient notes his last injection of semaglutide was this past Wednesday. In the emergency room and abdominal/pelvis CT revealed right renal calculus 16mm with adjacent inflammation, severe hepatic steatosis, cholelithiasis, and abdominal ascites. Chest CTA revealed bilateral pleural effusions, trace. Bilateral lower extremity venous Doppler was negative for DVT. EKG revealed sinus rhythm at 94 bpm with an incomplete right bundle branch block with T wave inversion in leads II, 3, aVF. Laboratory evaluation was remarkable for leukocytosis of 11.3, MCV 102.6, sodium 134, potassium 3.2, glucose 173, magnesium 1.5, total bilirubin 2.6, AST 140, ALT 76, alk phos 174, troponin less than 0.012, proBNP 238, with albumin of 2.7. ED documentation reviewed and case discussed with ED provider. Review of systems: Pertinent positives and negatives as discussed in HPI, a complete review of systems was performed and all other systems are negative. Physical examination: Vital signs reviewed General: non toxic, no distress, appears at stated age, obese Derm: no unusual rashes/lesions, warm Head: atraumatic, normocephalic, symmetric Eyes: EOMI, no lid lag, anicteric sclera, pupils equal round reactive to light ENT: Nose and ears atraumatic Neck: No cervical lymphadenopathy, trachea midline, supple Mouth: no lip lesion, mucus membranes moist Cardiovascular: S1S2 reg, no murmur, positive dorsalis pedis pulse bilateral, anasarca with 2+ pitting edema extending to abdomen Lungs: CTA bilateral, no rhonchi, no rales, no accessory muscle use Abdominal: soft, mild R sided tenderness on palpation, no guarding Ext: muscle strength 5 out of 5 in all 4 extremities grossly, no gross muscle atrophy, no contractures, Neuro: CN II-XI grossly intact, no gross focal neuro deficits Psych: Alert, oriented, appropriate affect Assessment: Anasarca, suspect due to hypoalbuminemia in setting of malnutrition Intractable nausea and vomiting, suspected due to GLP-1 agonist use Hyperbilirubinemia with transaminitis, suspect due to alcohol abuse in setting of GLP-1 agonist use which may also be a causative factor Hypokalemia and hypomagnesemia, suspect due to poor oral intake Right-sided renal calculus with adjacent inflammation Leukocytosis, likely due to acute stressor with no signs of active infection at this time Macrocytosis, likely due to poor oral intake and nutrient deficiency Chronic conditions: Type II DM, A-fib Imaging: In the emergency room and abdominal/pelvis CT revealed right renal calculus 16mm with adjacent inflammation, severe hepatic steatosis, cholelithiasis, and abdominal ascites. Chest CTA revealed bilateral pleural effusions, trace. Bilateral lower extremity venous Doppler was negative for DVT. EKG revealed sinus rhythm at 94 bpm with an incomplete right bundle branch block with T wave inversion in leads II, 3, aVF. Data Review: Laboratory evaluation was remarkable for leukocytosis of 11.3, MCV 102.6, sodium 134, potassium 3.2, glucose 173, magnesium 1.5, total bilirubin 2.6, AST 140, ALT 76, alk phos 174, troponin less than 0.012, proBNP 238, with albumin of 2.7. Plan: Discontinue patient's home semaglutide at this time Follow-up right upper quadrant ultrasound Dietitian consult Antiemetics Check B12 and folate levels Replace potassium and magnesium Monitor CMP Urology consult for nephrolithiasis Resume home medications once reconciled Advised on the importance of cessation from alcohol use CIWA protocol Continue thiamine daily with multivitamin Fall precautions DVT prophylaxis: Lovenox Subq The patient is admitted with an anticipated greater than 2 midnight stay for evaluation of anasarca CODE STATUS: Full Code Discussed with: Patient Anticipated discharge place: Home C/w Past Medical History Past Medical History: Diabetes Mellitus, Deep Vein Thrombosis (DVT), Hyperlipidemia Additional Past Medical History / Comment(s): DVT IN 2019 History of Any Multi-Drug Resistant Organisms: None Reported Additional Past Surgical History / Comment(s): gastric bypass 2002, kyphoplasty, contracture fixed to right hand, screws in pinky on left hand. Past Anesthesia/Blood Transfusion Reactions: No Reported Reaction Smoking Status: Never smoker - Past Family History Father Family Medical History: COPD Medications and Allergies Home Medications Medication Instructions Recorded Confirmed Type Anastrozole [Arimidex] 1 mg PO DIRECTED 04/02/21 04/02/21 History Apixaban [Eliquis] 5 mg PO BID 04/02/21 04/02/21 History Empagliflozin [Jardiance] 10 mg PO DAILY 04/02/21 04/02/21 History Finasteride [Proscar] 5 mg PO DAILY 04/02/21 04/02/21 History Montelukast [Singulair] 10 mg PO DAILY 04/02/21 04/02/21 History Olmesartan [Benicar] 20 mg PO DAILY 04/02/21 04/02/21 History Simvastatin 10 mg PO DAILY 04/02/21 04/02/21 History Testosterone Cypionate 200 mg IM DIRECTED 04/02/21 04/02/21 History [Depo-Testosterone] dexAMETHasone [Dexamethasone] 6 mg PO DIRECTED 04/02/21 04/02/21 History metFORMIN HCL 500 mg PO BID 04/02/21 04/02/21 History sitaGLIPtin [Januvia] 100 mg PO DAILY 04/02/21 04/02/21 History Allergies Allergy/AdvReac Type Severity Reaction Status Date / Time No Known Allergies Allergy Verified 04/23/24 18:47 Physical Exam Vitals: Vital Signs Temp Pulse Pulse Resp BP BP Pulse Ox 04/24/24 00:19 97.9 F 92 16 146/74 96 04/23/24 23:11 101 H 18 133/79 95 04/23/24 21:06 94 18 142/64 97 04/23/24 18:48 98.4 F 100 20 125/79 97 Intake and Output 04/23/24 04/23/24 04/24/24 14:59 22:59 06:59 Other: Weight 95.708 kg 95.708 kg Results CBC & Chem 7: 04/23/24 19:10 04/23/24 19:10 Labs: Abnormal Lab Results - Last 24 Hours (Table) 04/23/24 04/23/24 04/23/24 Range/Units 19:10 19:10 19:10 WBC 11.3 H (3.8-10.6) k/uL MCV 102.6 H (80.0-100.0) fL Neutrophils # 9.7 H (1.3-7.7) k/uL Lymphocytes # 0.9 L (1.0-4.8) k/uL PT 13.5 H (10.0-12.5) sec INR 1.3 H (<1.2) D-Dimer 1.09 H (<0.60) mg/L FEU Sodium 134 L (137-145) mmol/L Potassium 3.2 L (3.5-5.1) mmol/L BUN 7 L (9-20) mg/dL Glucose 173 H (74-99) mg/dL Calcium 7.6 L (8.4-10.2) mg/dL Magnesium 1.5 L (1.6-2.3) mg/dL Total Bilirubin 2.6 H (0.2-1.3) mg/dL AST 140 H (17-59) U/L ALT 76 H (4-49) U/L Alkaline Phosphatase 174 H (38-126) U/L Total Protein 5.3 L (6.3-8.2) g/dL Albumin 2.7 L (3.5-5.0) g/dL Thrombosis Risk Factor Assmnt - Choose All That Apply Any of the Below Risk Factors Present?: Yes Each Factor Represents 1 point: Obesity (BMI >25) Other Risk Factors: Yes Each Risk Factor Represents 2 Points: Age 61-74 years Each Risk Factor Represents 3 Points: History of DVT/PE Thrombosis Risk Factor Assessment Total Risk Factor Score: 6 Thrombosis Risk Factor Assessment Level: High Risk
--- NOTE | 2024-04-24 03:16 | US ---
EXAM: US Abdomen Limited, Gallbladder CLINICAL HISTORY: ITS.REASON US Reason: pain TECHNIQUE: Real-time ultrasound of the right upper quadrant with image documentation. COMPARISON: No relevant prior studies available. FINDINGS: Gallbladder: Cholelithiasis. Mild gallbladder wall thickening measuring 3.4 mm. Sonographic Sims's sign is positive. Common bile duct: Common bile duct is dilated measuring 8 mm. No stones. Pancreas: Pancreas is suboptimally evaluated secondary to overlying bowel gas. Right kidney: 2.3 cm right intrarenal calculus at the renal pelvis. No hydronephrosis. IMPRESSION: Cholelithiasis with gallbladder wall thickening and abdominal discomfort. Findings may represent acute cholecystitis in the appropriate clinical setting
[2024-04-24 03:23] LABS: Basophils # (A) 0.1 k/uL (0-0.2); Basophils % (A) 1 %; Eosinophils % (A) 0 %; HCT 45.3 % (39.0-53.0); Lymphocytes # (A) 0.3 k/uL (1.0-4.8); Lymphocytes % (A) 3 %; MCH 33.9 pg (25.0-35.0); MCV 102.6 fL (80.0-100.0); Macrocytosis Slight; Mean Platelet Volume 8.3; Monocytes # (A) 0.6 k/uL (0-1.0); Monocytes % (A) 5 %; Neutrophils # (A) 9.4 k/uL (1.3-7.7); Neutrophils % (A) 91 %; Platelet Count 172 k/uL (150-450); RBC 4.42 m/uL (4.30-5.90); RDW 12.5 % (11.5-15.5); WBC 10.4 k/uL (3.8-10.6)
[2024-04-24 03:32] LABS: Potassium 3.7 mmol/L (3.5-5.1)
[2024-04-24 03:33] LABS: ALT 72 U/L (4-49); AST 110 U/L (17-59); African American GFR (CKD) >90 (>60 ml/min/1.73 sqM); Albumin 2.4 g/dL (3.5-5.0); Alkaline Phosphatase 153 U/L (38-126); Anion Gap 1 mmol/L; Blood Urea Nitrogen 9 mg/dL (9-20); Calcium 7.4 mg/dL (8.4-10.2); Carbon Dioxide 31 mmol/L (22-30); Chloride 102 mmol/L (98-107); Glucose 156 mg/dL (74-99); Magnesium 1.9 mg/dL (1.6-2.3); Non-African American GFR(CKD) >90 (>60 ml/min/1.73 sqM); Phosphorus 3.4 mg/dL (2.5-4.5); Sodium 134 mmol/L (137-145); Total Bilirubin 2.2 mg/dL (0.2-1.3); Total Protein 4.8 g/dL (6.3-8.2)
[2024-04-24] MEDS: MORPHINE SULFATE 4 MG/ML SYRINGE IV PRN (06:09)
[2024-04-24] MEDS ORDERED: DEXTROSE 50% SYRINGE 50 ML IVP PRN ×2 (07:31)
[2024-04-24] MEDS: TRIMETHOBENZAMIDE 100 MG/ML 2 ML VIAL IM STA (07:49)
--- NOTE | 2024-04-24 07:59 | P.GSCN ---
History of Present Illness Consult date: 04/24/24 History of present illness: 63 yo male admitted with weight loss, diarrhea, nausea and vomiting. He had a ct scan that identiifed a a 16 mm non obstructing upj stone on the right. There is no urine available. He passed a stone years ago. He is not having any back or flank pain. He has had hematuria for several months. THere is no history of infection. .He has a 40 lb weight loss from medication and decreased appetite over the last several months. Review of Systems All systems: negative - Constitutional Denies fever, Denies weight loss - EENT Eyes: denies blurred vision Ears, nose, mouth and throat: Denies dysphagia - Cardiovascular Denies chest pain, Denies shortness of breath - Respiratory Denies cough, Denies 7 - Gastrointestinal Reports as per HPI - Genitourinary Denies dysuria, Denies hematuria - Integumentary Denies rash, Denies unusual bruising - Neurological Denies headaches, Denies syncope - Hematologic/Lymphatic Denies easy bleeding, Denies easy bruising Past Medical History Past Medical History: Diabetes Mellitus, Deep Vein Thrombosis (DVT), Hyperlipidemia Additional Past Medical History / Comment(s): DVT IN 2019 History of Any Multi-Drug Resistant Organisms: None Reported Additional Past Surgical History / Comment(s): gastric bypass 2002, kyphoplasty, contracture fixed to right hand, screws in pinky on left hand. Past Anesthesia/Blood Transfusion Reactions: No Reported Reaction Smoking Status: Never smoker - Past Family History Father Family Medical History: COPD Medications and Allergies Home Medications Medication Instructions Recorded Confirmed Type Anastrozole [Arimidex] 1 mg PO SUWE 04/02/21 04/24/24 History Finasteride [Proscar] 5 mg PO DAILY 04/02/21 04/24/24 History Montelukast [Singulair] 10 mg PO DAILY 04/02/21 04/24/24 History Simvastatin 10 mg PO DAILY 04/02/21 04/24/24 History Testosterone Cypionate 100 mg IM WE 04/02/21 04/24/24 History [Depo-Testosterone] Apixaban [Eliquis] 5 mg PO DAILY 04/24/24 04/24/24 History Empagliflozin [Jardiance] 25 mg PO DAILY 04/24/24 04/24/24 History Eszopiclone [Lunesta] 3 mg PO HS PRN 04/24/24 04/24/24 History Gabapentin 600 mg PO DAILY PRN 04/24/24 04/24/24 History Omeprazole [PriLOSEC] 20 mg PO DAILY 04/24/24 04/24/24 History Semaglutide [Ozempic] 2 mg SQ WE 04/24/24 04/24/24 History Tamsulosin [Flomax] 0.4 mg PO DAILY 04/24/24 04/24/24 History Allergies Allergy/AdvReac Type Severity Reaction Status Date / Time No Known Allergies Allergy Verified 04/24/24 07:33 Surgical - Exam Vital Signs Temp Pulse Resp BP Pulse Ox 98.4 F 100 20 125/79 97 04/23/24 18:48 04/23/24 18:48 04/23/24 18:48 04/23/24 18:48 04/23/24 18:48 - General obese Results - Labs 04/24/24 02:35 04/24/24 02:35 Abnormal Lab Results - Last 24 Hours (Table) 04/23/24 04/23/24 04/23/24 Range/Units 19:10 19:10 19:10 WBC 11.3 H (3.8-10.6) k/uL MCV 102.6 H (80.0-100.0) fL Neutrophils # 9.7 H (1.3-7.7) k/uL Lymphocytes # 0.9 L (1.0-4.8) k/uL PT 13.5 H (10.0-12.5) sec INR 1.3 H (<1.2) D-Dimer 1.09 H (<0.60) mg/L FEU Sodium 134 L (137-145) mmol/L Potassium 3.2 L (3.5-5.1) mmol/L Carbon Dioxide (22-30) mmol/L BUN 7 L (9-20) mg/dL Glucose 173 H (74-99) mg/dL Calcium 7.6 L (8.4-10.2) mg/dL Magnesium 1.5 L (1.6-2.3) mg/dL Total Bilirubin 2.6 H (0.2-1.3) mg/dL AST 140 H (17-59) U/L ALT 76 H (4-49) U/L Alkaline Phosphatase 174 H (38-126) U/L Total Protein 5.3 L (6.3-8.2) g/dL Albumin 2.7 L (3.5-5.0) g/dL 04/24/24 04/24/24 Range/Units 02:35 02:35 WBC (3.8-10.6) k/uL MCV 102.6 H (80.0-100.0) fL Neutrophils # 9.4 H (1.3-7.7) k/uL Lymphocytes # 0.3 L (1.0-4.8) k/uL PT (10.0-12.5) sec INR (<1.2) D-Dimer (<0.60) mg/L FEU Sodium 134 L (137-145) mmol/L Potassium (3.5-5.1) mmol/L Carbon Dioxide 31 H (22-30) mmol/L BUN (9-20) mg/dL Glucose 156 H (74-99) mg/dL Calcium 7.4 L (8.4-10.2) mg/dL Magnesium (1.6-2.3) mg/dL Total Bilirubin 2.2 H (0.2-1.3) mg/dL AST 110 H (17-59) U/L ALT 72 H (4-49) U/L Alkaline Phosphatase 153 H (38-126) U/L Total Protein 4.8 L (6.3-8.2) g/dL Albumin 2.4 L (3.5-5.0) g/dL Diabetes panel 04/23/24 04/24/24 Range/Units 19:10 02:35 Sodium 134 L 134 L (137-145) mmol/L Potassium 3.2 L 3.7 (3.5-5.1) mmol/L Chloride 104 102 (98-107) mmol/L Carbon Dioxide 24 31 H (22-30) mmol/L BUN 7 L 9 (9-20) mg/dL Creatinine 0.66 0.73 (0.66-1.25) mg/dL Glucose 173 H 156 H (74-99) mg/dL Calcium 7.6 L 7.4 L (8.4-10.2) mg/dL AST 140 H 110 H (17-59) U/L ALT 76 H 72 H (4-49) U/L Alkaline Phosphatase 174 H 153 H (38-126) U/L Total Protein 5.3 L 4.8 L (6.3-8.2) g/dL Albumin 2.7 L 2.4 L (3.5-5.0) g/dL Calcium panel 04/23/24 04/24/24 Range/Units 19:10 02:35 Calcium 7.6 L 7.4 L (8.4-10.2) mg/dL Phosphorus 3.7 3.4 (2.5-4.5) mg/dL Albumin 2.7 L 2.4 L (3.5-5.0) g/dL Pituitary panel 04/23/24 04/24/24 Range/Units 19:10 02:35 Sodium 134 L 134 L (137-145) mmol/L Potassium 3.2 L 3.7 (3.5-5.1) mmol/L Chloride 104 102 (98-107) mmol/L Carbon Dioxide 24 31 H (22-30) mmol/L BUN 7 L 9 (9-20) mg/dL Creatinine 0.66 0.73 (0.66-1.25) mg/dL Glucose 173 H 156 H (74-99) mg/dL Calcium 7.6 L 7.4 L (8.4-10.2) mg/dL Adrenal panel 04/23/24 04/24/24 Range/Units 19:10 02:35 Sodium 134 L 134 L (137-145) mmol/L Potassium 3.2 L 3.7 (3.5-5.1) mmol/L Chloride 104 102 (98-107) mmol/L Carbon Dioxide 24 31 H (22-30) mmol/L BUN 7 L 9 (9-20) mg/dL Creatinine 0.66 0.73 (0.66-1.25) mg/dL Glucose 173 H 156 H (74-99) mg/dL Calcium 7.6 L 7.4 L (8.4-10.2) mg/dL Total Bilirubin 2.6 H 2.2 H (0.2-1.3) mg/dL AST 140 H 110 H (17-59) U/L ALT 76 H 72 H (4-49) U/L Alkaline Phosphatase 174 H 153 H (38-126) U/L Total Protein 5.3 L 4.8 L (6.3-8.2) g/dL Albumin 2.7 L 2.4 L (3.5-5.0) g/dL - Imaging CT scan - abdomen: report reviewed, image reviewed CT scan - pelvis: report reviewed, image reviewed Assessment and Plan Assessment: Impression: right renal stone. Plan: the patient needs a ua. At some point in time will probably need imani atment to the stone. I discussed at length the treatment options for this stone. Pending the results of the ua as to further recommendations. We will follow.
[2024-04-24 09:13] LABS: Appearance,Urine Clear (Clear); Bilirubin,Urine Negative (Negative); Blood,Urine Large (Negative); Color,Urine Dark Brown; Glucose,Urine (UA) 4+ (Negative); Ketones,Urine 1+ (Negative); Leukocyte Esterase,Urine Trace (Negative); Nitrite,Urine Negative (Negative); Protein,Urine 1+ (Negative); RBC,Urine >182 /hpf (0-5); WBC,Urine 26 /hpf (0-5)
[2024-04-24] MEDS: FOLIC ACID 1 MG TAB PO SCH (09:27)
[2024-04-24] MEDS: THIAMINE 100 MG TAB PO SCH (09:27)
[2024-04-24] MEDS: ENOXAPARIN 40 MG/0.4 ML SYRINGE SQ SCH (09:27)
[2024-04-24] MEDS: MULTIVITAMINS, THERA 1 EACH TAB PO SCH (09:27)
[2024-04-24] MEDS ORDERED: ACETAMINOPHEN TAB 325 MG TAB PO PRN (11:29)
[2024-04-24 11:33] LABS: Glucose,Whole Blood 167 mg/dL (70-110)
--- NOTE | 2024-04-24 11:50 | P.PN ---
Progress Note - Text Progress Note Date: 04/24/24 After further discussion the patients states that hed like the stone from the right renal pelvis removed. He has been set up for right ureteroscopy with laser lithotripsy tomorrow
[2024-04-24] MEDS: INSULIN ASPART (NovoLOG) 100 UNIT/ML VIAL SQ SCH (12:01)
--- NOTE | 2024-04-24 12:59 | CA ---
Transthoracic Echo Report Name: Christoph Harris Age: 63 Gender: M : 1960 Exam Date: 04/24/2024 08:47 Exam Location: [facility] Ht (in): 68 Wt (lb): 211 Ordering Physician: Carter Soliman MD Attending/Referring Phys: Site Safety Representative Ani Cline RDCS Procedure CPT: Indications: LE Edema Cardiac Hx: Technical Quality: Fair Contrast 1: Total Dose (mL): Contrast 2: Total Dose (mL): MEASUREMENTS (Male / Female) Normal Values 2D ECHO LV Diastolic Diameter PLAX 5.0 cm 4.2 - 5.9 / 3.9 - 5.3 cm LV Systolic Diameter PLAX 3.1 cm IVS Diastolic Thickness 1.1 cm 0.6 - 1.0 / 0.6 - 0.9 cm LVPW Diastolic Thickness 1.2 cm 0.6 - 1.0 / 0.6 - 0.9 cm LV Relative Wall Thickness 0.5 RV Internal Dim ED PLAX 2.2 cm LA Systolic Diameter LX 3.4 cm 3.0 - 4.0 / 2.7 - 3.8 cm LV Diastolic Volume MOD BP 63.2 cm??? 67 - 155 / 56 - 104 cm??? LV Systolic Volume MOD BP 18.4 cm??? 22 - 58 / 19 - 49 cm??? LV Ejection Fraction MOD BP 70.8 % >= 55 % LV Cardiac Index MOD BP 1771.8 cm???/min???m??? LV Diastolic Volume MOD 4C 82.2 cm??? LV Systolic Volume MOD 4C 20.4 cm??? LV Ejection Fraction MOD 4C 75.1 % LV Cardiac Index MOD 4C 2443.0 cm???/min???m??? LV Diastolic Length 4C 7.6 cm LV Systolic Length 4C 6.2 cm LV Diastolic Volume MOD 2C 41.5 cm??? LV Systolic Volume MOD 2C 14.5 cm??? LV Ejection Fraction MOD 2C 65.1 % LV Cardiac Index MOD 2C 1068.3 cm???/min???m??? LV Diastolic Length 2C 6.4 cm LV Systolic Length 2C 5.2 cm LA Volume 43.5 cm??? 18 - 58 / 22 - 52 cm??? LA Volume Index 20.0 cm???/m??? 16 - 28 cm???/m??? M-MODE Aortic Root Diameter MM 3.5 cm LA Systolic Diameter MM 4.0 cm LA Ao Ratio MM 1.1 AV Cusp Separation MM 2.0 cm DOPPLER MV Area PHT 3.0 cm??? Mitral E Point Velocity 68.6 cm/s Mitral A Point Velocity 84.9 cm/s Mitral E to A Ratio 0.8 MV Deceleration Time 251.5 ms TR Peak Velocity 235.1 cm/s TR Peak Gradient 22.1 mmHg Right Ventricular Systolic Press 26.7 mmHg FINDINGS Left Ventricle Left ventricular ejection fraction is estimated at 50-55 %. Mildly increased septal wall thickness. Normal left ventricular systolic function with no obvious regional wall motion abnormalities. Left ventricular cavity size normal. Right Ventricle Mild right ventricular dilatation. Right ventricular systolic pressure within normal limits. Right Atrium Normal right atrial size. Left Atrium Normal left atrial size. Mitral Valve Structurally normal mitral valve. Trace to mild mitral regurgitation. No mitral stenosis. Aortic Valve Trileaflet aortic valve. No aortic valve stenosis or regurgitation. Tricuspid Valve Structurally normal tricuspid valve. Trace to mild tricuspid regurgitation. No tricuspid stenosis. Pulmonic Valve Structurally normal pulmonic valve. Trace pulmonic regurgitation. No pulmonic stenosis. Pericardium No pericardial or pleural effusion. Aorta Normal size aortic root and proximal ascending aorta. CONCLUSIONS Left ventricular ejection fraction 50-55% Mildly increased left ventricular wall thickness Trace to mild mitral regurgitation Trace to mild tricuspid regurgitation Previewed by: Dr. Luis Jeong DO (Electronically Signed) Final Date: 24 April 2024 12:58
[2024-04-24 14:48] VITALS: BMI 32.1
--- NOTE | 2024-04-24 16:48 | P.PN ---
Subjective Progress Note Date: 04/24/24 Patient is a 63-year-old male with a PMH of A-fib on Eliquis, type II DM, and morbid obesity who presents to the emergency room with complaints of lower extremity swelling with nausea and vomiting. Patient reports that he was started on Ozempic roughly 6 months ago. He also reports that he developed cesar sea and vomiting roughly 4 months ago which he did not quite attribute to the Ozempic, although does state that his dose was gradually increased during this time. Patient reports losing roughly 40 pounds of weight in the last 3 to 4 months as he states that he has minimal oral intake during this time. Also reports that he has been drinking multiple mixed drinks with hard liquor nightly during this time to help him go to sleep. Reports that prior to the past 6 months, he used to only drink at most once a week a few drinks with friends. Reports that he noticed quickly worsening lower extremity swelling over the past 1 to 2 weeks. Denies decreased exercise tolerance, chest discomfort, shortness of breath does report occasional right upper quadrant abdominal pain and tenderness., 3 out of 10 at maximal intensity, which he attributes to his severe nausea and retching. Denies experiencing fever, chills, weakness, numbness, tingling, or urinary complaints. Patient notes his last injection of semaglutide was this past Wednesday. In the emergency room and abdominal/pelvis CT revealed right renal calculus 16mm with adjacent inflammation, severe hepatic steatosis, cholelithiasis, and abdominal ascites. Chest CTA revealed bilateral pleural effusions, trace. Bilateral lower extremity venous Doppler was negative for DVT. EKG revealed sinus rhythm at 94 bpm with an incomplete right bundle branch block with T wave inversion in leads II, 3, aVF. Laboratory evaluation was remarkable for leukocytosis of 11.3, MCV 102.6, sodium 134, potassium 3.2, glucose 173, magnesium 1.5, total bilirubin 2.6, AST 140, ALT 76, alk phos 174, troponin less than 0.012, proBNP 238, with albumin of 2.7. 04/24/2024 patient seen and examined at bedside. Patient has no new complaints. No acute events overnight. WBC 10.4 hemoglobin 15 platelet count 1 72,000 sodium 134 potassium 3.7 chloride 102 bicarb 31 BUN 9 creatinine 0.73 glucose 156 calcium 7.4 phosphorus 3.4 magnesium 1.9 AST 110 ALT 72 alk phos 157 albumin 2.4 B12 1278. Gallbladder ultrasound shows cholelithiasis with thickening and abdominal discomfort. Physical examination: Vital signs reviewed General: non toxic, no distress, appears at stated age, obese Derm: no unusual rashes/lesions, warm Head: atraumatic, normocephalic, symmetric Eyes: EOMI, no lid lag, anicteric sclera, pupils equal round reactive to light ENT: Nose and ears atraumatic Neck: No cervical lymphadenopathy, trachea midline, supple Mouth: no lip lesion, mucus membranes moist Cardiovascular: S1S2 reg, no murmur, positive dorsalis pedis pulse bilateral, anasarca with 2+ pitting edema extending to abdomen Lungs: CTA bilateral, no rhonchi, no rales, no accessory muscle use Abdominal: soft, nontender, no guarding Ext: muscle strength 5 out of 5 in all 4 extremities grossly, no gross muscle atrophy, no contractures Neuro: CN II-XI grossly intact, no gross focal neuro deficits Psych: Alert, oriented, appropriate affect Assessment and Plan: #. Anasarca, suspect due to hypoalbuminemia in setting of malnutrition and protein- losing enteropathy #. Intractable nausea and vomiting, suspected due to GLP-1 agonist use #. Hyperbilirubinemia with transaminitis, suspect due to alcohol abuse in setting of GLP-1 agonist use which may also be a causative factor #. Hypokalemia and hypomagnesemia, suspect due to poor oral intake, resolved #. Macrocytosis, likely due to poor oral intake and nutrient deficiency Fall precautions CIWA protocol Zofran 4mg IVP PRN for antiemetics Continue thiamine daily with multivitamin Gallbladder ultrasound shows cholelithiasis with thickening and abdominal discomfort. Consider cholecystectomy electively. Monitor CMP TSH levels Pre-albumin/transthyretin levels Vitamin D levels Folate levels pending B12 1278 Dietitian consult Advised on the importance of cessation from alcohol use #. Right-sided renal calculus with adjacent inflammation #. Leukocytosis, likely due to acute stressor with no signs of active infection at this time Urinalysis is positive for hematuria with greater than 182 RBC Urology consult for nephrolithiasis. For right ureteroscopy with laser lithotripsy tomorrow. Chronic conditions: #. Type II DM #. A-fib Discontinue patient's home semaglutide at this time Resume home medications once reconciled F: Oral intake E: None for now N: Ensure max A: Self ambulate DVT prophylaxis: Lovenox Subq The patient is admitted with an anticipated greater than 2 midnight stay for evaluation of anasarca CODE STATUS: Full Code Discussed with: Patient Anticipated discharge place: Home I saw and evaluated the patient during the patel and critical portions of this encounter, and discussed the case in detail with the resident author of this note, I agree with the Assessment and Plan, and my changes, if any, are highlighted in blue. Objective - Vital Signs Vital signs: Vital Signs Temp 97.9 F 04/24/24 07:29 Pulse 78 04/24/24 07:29 Resp 18 04/24/24 07:29 BP 132/78 04/24/24 07:29 Pulse Ox 96 04/24/24 07:29 FiO2 Intake & Output 04/23/24 04/24/24 04/24/24 18:59 06:59 18:59 Weight 95.708 kg 95.708 kg Other: Voiding Method Urinal - Labs CBC & Chem 7: 04/24/24 02:35 04/24/24 02:35 Labs: Abnormal Lab Results - Last 24 Hours (Table) 04/23/24 04/23/24 04/23/24 Range/Units 19:10 19:10 19:10 WBC 11.3 H (3.8-10.6) k/uL MCV 102.6 H (80.0-100.0) fL Neutrophils # 9.7 H (1.3-7.7) k/uL Lymphocytes # 0.9 L (1.0-4.8) k/uL PT 13.5 H (10.0-12.5) sec INR 1.3 H (<1.2) D-Dimer 1.09 H (<0.60) mg/L FEU Sodium 134 L (137-145) mmol/L Potassium 3.2 L (3.5-5.1) mmol/L Carbon Dioxide (22-30) mmol/L BUN 7 L (9-20) mg/dL Glucose 173 H (74-99) mg/dL Calcium 7.6 L (8.4-10.2) mg/dL Magnesium 1.5 L (1.6-2.3) mg/dL Total Bilirubin 2.6 H (0.2-1.3) mg/dL AST 140 H (17-59) U/L ALT 76 H (4-49) U/L Alkaline Phosphatase 174 H (38-126) U/L Total Protein 5.3 L (6.3-8.2) g/dL Albumin 2.7 L (3.5-5.0) g/dL 04/24/24 04/24/24 Range/Units 02:35 02:35 WBC (3.8-10.6) k/uL MCV 102.6 H (80.0-100.0) fL Neutrophils # 9.4 H (1.3-7.7) k/uL Lymphocytes # 0.3 L (1.0-4.8) k/uL PT (10.0-12.5) sec INR (<1.2) D-Dimer (<0.60) mg/L FEU Sodium 134 L (137-145) mmol/L Potassium (3.5-5.1) mmol/L Carbon Dioxide 31 H (22-30) mmol/L BUN (9-20) mg/dL Glucose 156 H (74-99) mg/dL Calcium 7.4 L (8.4-10.2) mg/dL Magnesium (1.6-2.3) mg/dL Total Bilirubin 2.2 H (0.2-1.3) mg/dL AST 110 H (17-59) U/L ALT 72 H (4-49) U/L Alkaline Phosphatase 153 H (38-126) U/L Total Protein 4.8 L (6.3-8.2) g/dL Albumin 2.4 L (3.5-5.0) g/dL
[2024-04-24 17:06] LABS: Glucose,Whole Blood 125 mg/dL (70-110)
[2024-04-24] MEDS ORDERED: GABAPENTIN 300 MG CAP PO PRN (18:18)
[2024-04-24 20:55] LABS: Glucose,Whole Blood 143 mg/dL (70-110)
[2024-04-25 06:16] LABS: Glucose,Whole Blood 84 mg/dL (70-110)
[2024-04-25 08:31] LABS: Basophils # (A) 0.03 X 10*3/uL (0.00-0.10); Basophils % (A) 0.4 %; Eosinophils # (A) 0.03 X 10*3/uL (0.04-0.35); Eosinophils % (A) 0.4 %; HCT 39.7 % (39.6-50.0); HGB 13.5 g/dL (13.0-17.0); Lymphocytes # (A) 0.93 X 10*3/uL (0.90-5.00); MCH 34.2 pg (27.0-32.0); MCV 100.5 FL (80.0-97.0); Mean Platelet Volume 11.6 FL (9.5-12.2); Monocytes # (A) 0.88 X 10*3/uL (0.20-1.00); Monocytes % (A) 11.4 %; NRBC Per 100 WBC 0 X 10*3/uL (0.00-0.01); Neutrophils # (A) 5.84 X 10*3/uL (1.80-7.70); Neutrophils % (A) 75.3 %; Platelet Count 157 X 10*3/uL (140-440); RBC 3.95 X 10*6/uL (4.40-5.60); RDW 12.7 % (11.5-14.5); WBC 7.75 X 10*3/uL (4.50-10.00)
[2024-04-25 08:41] LABS: ALT 50 U/L (10-49); AST 59 U/L (14-35); Albumin 2.3 g/dL (3.8-4.9); Albumin/Globulin Ratio 1.44 Ratio (1.60-3.17); BUN/Creat Ratio 14.83 Ratio (12.00-20.00); Blood Urea Nitrogen 8.9 mg/dL (9.0-27.0); Calcium 7.7 mg/dL (8.7-10.3); Carbon Dioxide 29.7 mmol/L (21.6-31.8); Chloride 100 mmol/L (96-109); Globulin 1.6 g/dL (1.6-3.3); Glucose 109 mg/dL (70-110); Potassium 3.6 mmol/L (3.5-5.5); Sodium 136 mmol/L (135-145); Total Bilirubin 1.2 mg/dL (0.3-1.2); Total Protein 3.9 g/dL (6.2-8.2)
[2024-04-25 08:42] LABS: Alkaline Phosphatase 131 U/L (41-126)
[2024-04-25] MEDS: IV FLUID CONTINUATION 1,000 ML IV ONE (09:15)
[2024-04-25 09:42] LABS: Glucose,Whole Blood 102 mg/dL (70-110)
[2024-04-25] MEDS: SCOPOLAMINE 1 MG/72 HR PATCH TRANSDERM STA (09:43)
[2024-04-25] MEDS: DEXAMETHASONE SOD PHOSPHATE 4 MG/ML 1 ML VIAL IVP STA (09:44)
[2024-04-25] MEDS: FAMOTIDINE 20 MG/2 ML VIAL IV STA (09:44)
[2024-04-25] MEDS ORDERED: SUCCINYLCHOLINE CHLORIDE 200 MG/10 ML VIAL IV ONE (10:12)
[2024-04-25] MEDS ORDERED: ceFAZolin 1 GM/50 ML BAG (PMX) ONE (10:12)
[2024-04-25] MEDS ORDERED: PROPOFOL 10 MG/ML 20 ML VIAL IV ONE (10:12)
[2024-04-25] MEDS ORDERED: fentaNYL (PF) 50 MCG/ML 2 ML AMP ONE (10:12)
[2024-04-25] MEDS ORDERED: LIDOCAINE 1% INJ 10MG/ML (20 ML MDV) ONE (10:12)
[2024-04-25] MEDS ORDERED: MIDAZOLAM 2 MG/2 ML VIAL ONE (10:12)
--- NOTE | 2024-04-25 11:34 | P.OP ---
Date of Procedure: 04/25/24 Preoperative Diagnosis: right UPJ stone with colic Postoperative Diagnosis: same Procedure(s) Performed: cystoscopy with right ureteroscopy laser lithotripsy and placement of 626 stent Anesthesia: INGE Surgeon: Jeremy Hernandez Estimated Blood Loss (ml): 10 Pathology: other (stone) Condition: stable Disposition: PACU Indications for Procedure: patient is 63. He is in the hospital with abdominal pain. He has a 16 mm UPJ stone. He comes for cystoscopy right ureteroscopy laser lithotripsy Description of Procedure: patient brought operating suite. Given a general anesthetic. Placed lithotomy position with a sterile prep and drape. Cystoscopy Foroblique lens and 21- Maldivian sheath identifies a normal anterior urethra. The prostatic urethra is minimally obstructing. The bladder roberts unremarkable. The ureteral orifices are normal. An 035 wires passed up the right ureter. There is a little bit of the J hook just distal to the UPJ. I passed by the stone. I then pass a reentry sheath up the right ureter to the UPJ. A lot of edema in the right UPJ. I passed the flexible ureteroscope up into the kidney. The large stone was identified. With the 275 laser probe was of energy the stone was dusted into very tiny pieces and flushed out of the kidney. At the end of the procedure I elect to leave a double-J catheter. I passed an 035 wire through the working sheath into the right renal pelvis. I removed the working sheath backloaded the wire onto the cystoscope. I reintroduced the cystoscope into the bladder. Over the wires passed a 6 x 26 double-J catheter that coils in the renal pelvis and in the bladder. The bladder is drained the patient is awake and returned recovery in good condition. He tolerated procedure well. Impression succesful laser lithotripsy to right renal pelvic stone. Recommendations. From urologic and point the patient can go home and 24 hours. He'll need a stent removed in 7-10 days.
[2024-04-25] MEDS ORDERED: HYDROmorphone 0.5 MG/0.5 ML SYRINGE IVP PRN (11:36)
--- NOTE | 2024-04-25 11:46 | FL ---
Intraoperative/procedural fluoroscopic services were provided for right ureteral calculus. Total fluo roscopy time is 2.57 minutes with a total of 3 submitted images to PACS. Total DAP 24.384 Gycm2. Ple ase see the operative note for further details. [facility], , 04/25/2024 11:44 AM
[2024-04-25 12:40] LABS: Glucose,Whole Blood 132 mg/dL (70-110)
[2024-04-25] MEDS: FINASTERIDE 5 MG TAB PO SCH (13:06)
[2024-04-25] MEDS: TAMSULOSIN 0.4 MG CAP.ER.24H PO SCH (13:06)
[2024-04-25] MEDS: ATORVASTATIN 10 MG TAB PO SCH (13:06)
[2024-04-25] MEDS: MONTELUKAST 10 MG TAB PO SCH (13:06)
[2024-04-25] MEDS: LACTATED RINGERS 1,000 ML IV SCH (13:07)
[2024-04-25] MEDS: ONDANSETRON 4 MG/2 ML VIAL IVP ONE (13:08)
[2024-04-25] MEDS: DEXAMETHASONE SOD PHOSPHATE 4 MG/ML 1 ML VIAL IV ONE (13:08)
[2024-04-25] MEDS: SPIRONOLACTONE 25 MG TAB PO SCH (13:13)
[2024-04-25] MEDS: FUROSEMIDE 40 MG TAB PO SCH (13:13)
[2024-04-25] MEDS ORDERED: TEMAZEPAM 15 MG CAP PO PRN (13:58)
--- NOTE | 2024-04-25 14:03 | P.PN ---
Subjective Progress Note Date: 04/25/24 Patient is a 63-year-old male with a PMH of A-fib on Eliquis, type II DM, and morbid obesity who presents to the emergency room with complaints of lower extremity swelling with nausea and vomiting. Patient reports that he was started on Ozempic roughly 6 months ago. He also reports that he developed cesar sea and vomiting roughly 4 months ago which he did not quite attribute to the Ozempic, although does state that his dose was gradually increased during this time. Patient reports losing roughly 40 pounds of weight in the last 3 to 4 months as he states that he has minimal oral intake during this time. Also reports that he has been drinking multiple mixed drinks with hard liquor nightly during this time to help him go to sleep. Reports that prior to the past 6 months, he used to only drink at most once a week a few drinks with friends. Reports that he noticed quickly worsening lower extremity swelling over the past 1 to 2 weeks. Denies decreased exercise tolerance, chest discomfort, shortness of breath does report occasional right upper quadrant abdominal pain and tenderness., 3 out of 10 at maximal intensity, which he attributes to his severe nausea and retching. Denies experiencing fever, chills, weakness, numbness, tingling, or urinary complaints. Patient notes his last injection of semaglutide was this past Wednesday. In the emergency room and abdominal/pelvis CT revealed right renal calculus 16mm with adjacent inflammation, severe hepatic steatosis, cholelithiasis, and abdominal ascites. Chest CTA revealed bilateral pleural effusions, trace. Bilateral lower extremity venous Doppler was negative for DVT. EKG revealed sinus rhythm at 94 bpm with an incomplete right bundle branch block with T wave inversion in leads II, 3, aVF. Laboratory evaluation was remarkable for leukocytosis of 11.3, MCV 102.6, sodium 134, potassium 3.2, glucose 173, magnesium 1.5, total bilirubin 2.6, AST 140, ALT 76, alk phos 174, troponin less than 0.012, proBNP 238, with albumin of 2.7. 04/24/2024 patient seen and examined at bedside. Patient has no new complaints. No acute events overnight. WBC 10.4 hemoglobin 15 platelet count 1 72,000 sodium 134 potassium 3.7 chloride 102 bicarb 31 BUN 9 creatinine 0.73 glucose 156 calcium 7.4 phosphorus 3.4 magnesium 1.9 AST 110 ALT 72 alk phos 157 albumin 2.4 B12 1278. Gallbladder ultrasound shows cholelithiasis with thickening and abdominal discomfort. 04/25/2024 patient seen and examined at bedside. No acute events overnight. Patient still experiences swelling of the abdomen. Will undergo lithotripsy today. WBC 7. 75 hemoglobin 13.5 platelet count 157 sodium 136 potassium 3.6 chloride 100 bicarb 29.7 BUN 8.9 creatinine 0.6 calcium 7.7 AST 59 ALT 50 alk phos 131 albumin 2.3 Physical examination: Vital signs reviewed General: non toxic, no distress, appears at stated age, obese Derm: no unusual rashes/lesions, warm Head: atraumatic, normocephalic, symmetric Eyes: EOMI, no lid lag, anicteric sclera, pupils equal round reactive to light ENT: Nose and ears atraumatic Neck: No cervical lymphadenopathy, trachea midline, supple Mouth: no lip lesion, mucus membranes moist Cardiovascular: S1S2 reg, no murmur, positive dorsalis pedis pulse bilateral, anasarca with 2+ pitting edema extending to abdomen Lungs: CTA bilateral, no rhonchi, no rales, no accessory muscle use Abdominal: soft, nontender, no guarding Ext: muscle strength 5 out of 5 in all 4 extremities grossly, no gross muscle atrophy, no contractures Neuro: CN II-XI grossly intact, no gross focal neuro deficits Psych: Alert, oriented, appropriate affect Assessment and Plan: #. Anasarca, suspect due to hypoalbuminemia in setting of malnutrition and protein- losing enteropathy #. Intractable nausea and vomiting, suspected due to GLP-1 agonist use #. Hyperbilirubinemia with transaminitis, suspect due to alcohol abuse in setting of GLP-1 agonist use which may also be a causative factor #. Hypokalemia and hypomagnesemia, suspect due to poor oral intake, resolved #. Macrocytosis, likely due to poor oral intake and nutrient deficiency Fall precautions CIWA protocol Zofran 4mg IVP PRN for antiemetics Initiated Lasix 40 mg p.o. daily Continue thiamine daily with multivitamin Gallbladder ultrasound shows cholelithiasis with thickening and abdominal discomfort. Consider cholecystectomy electively. Monitor CMP TSH 1.67 Pre-albumin low 11.5 Vitamin D levels Folate 506 B12 1278 Dietitian consult Diet adjusted to low-sodium limited to 2 g, fluid restriction 1500 mL with high- protein high-calorie diet Advised on the importance of cessation from alcohol use #. Right-sided renal calculus with adjacent inflammation, status post ureteroscopy with laser lithotripsy 04/25 #. Leukocytosis, likely due to acute stressor with no signs of active infection at this time, resolved Urinalysis is positive for hematuria with greater than 182 RBC Urology following. Will observe for 24 hours post op. IVF lactated Ringer's 20 cc/h Chronic conditions: #. Type II DM #. A-fib Discontinue patient's home semaglutide at this time On insulin sliding scale ACHS, monitor for hypoglycemia Accu-Cheks ACHS Resume home medications once reconciled F: Oral intake E: None for now N: Ensure max A: Self ambulate DVT prophylaxis: Lovenox Subq The patient is admitted with an anticipated greater than 2 midnight stay for evaluation of anasarca CODE STATUS: Full Code Discussed with: Patient Anticipated discharge place: Home I saw and evaluated the patient during the patel and critical portions of this encounter, and discussed the case in detail with the resident author of this note, I agree with the Assessment and Plan, and my changes, if any, are noted below. Patient seen post lithotripsy. Reports muscle spasms in lower back. Trial of Valium 5 mg IV x 1. 2g salt restriction advised along with 1.5L fluid restriction. Started on Lasix 40 mg PO QD and Aldactone 25 mg PO QD. Would benefit from high protein diet. Follow up with GI in the outpatient setting. Anticipate DC tomorrow if continued improvement. Objective - Vital Signs Vital signs: Vital Signs Temp 97.4 F L 04/25/24 11:35 Pulse 80 04/25/24 12:05 Resp 16 04/25/24 12:05 BP 119/63 04/25/24 12:05 Pulse Ox 91 L 04/25/24 12:05 FiO2 Intake & Output 04/24/24 04/25/24 04/25/24 18:59 06:59 18:59 Intake Total 360 750 Output Total 200 0 Balance 160 750 Weight 95.708 kg Intake: IV 750 Oral 360 Output: Urine 200 Estimated Blood Loss 0 Other: Voiding Method Urinal Urinal # Voids 2 2 - Labs CBC & Chem 7: 04/25/24 03:19 04/25/24 03:19 Labs: Abnormal Lab Results - Last 24 Hours (Table) 04/24/24 04/24/24 04/24/24 Range/Units 02:35 17:03 20:53 RBC (4.40-5.60) X 10*6/uL MCV (80.0-97.0) FL MCH (27.0-32.0) pg Eosinophils # (0.04-0.35) X 10*3/uL BUN (9.0-27.0) mg/dL POC Glucose (mg/dL) 125 H 143 H (70-110) mg/dL Calcium (8.7-10.3) mg/dL AST (14-35) U/L ALT (10-49) U/L Alkaline Phosphatase (41-126) U/L Total Protein (6.2-8.2) g/dL Albumin (3.8-4.9) g/dL Albumin/Globulin Ratio (1.60-3.17) Ratio Prealbumin 11.5 L (18.0-42.0) mg/dL 04/25/24 04/25/24 04/25/24 Range/Units 03:19 03:19 12:39 RBC 3.95 L (4.40-5.60) X 10*6/uL MCV 100.5 H (80.0-97.0) FL MCH 34.2 H (27.0-32.0) pg Eosinophils # 0.03 L (0.04-0.35) X 10*3/uL BUN 8.9 L (9.0-27.0) mg/dL POC Glucose (mg/dL) 132 H (70-110) mg/dL Calcium 7.7 L (8.7-10.3) mg/dL AST 59 H (14-35) U/L ALT 50 H (10-49) U/L Alkaline Phosphatase 131 H (41-126) U/L Total Protein 3.9 L (6.2-8.2) g/dL Albumin 2.3 L (3.8-4.9) g/dL Albumin/Globulin Ratio 1.44 L (1.60-3.17) Ratio Prealbumin (18.0-42.0) mg/dL Microbiology - Last 24 Hours (Table) 04/24/24 08:35 Urine Culture - Final Urine,Voided
[2024-04-25 15:39] LABS: Chol/HDL Ratio 2.38 Ratio; VLDL Calculation 13.08 mg/dL (5.00-40.00)
[2024-04-25 16:25] LABS: Glucose,Whole Blood 175 mg/dL (70-110)
[2024-04-25 22:12] LABS: Glucose,Whole Blood 144 mg/dL (70-110)
[2024-04-26 03:33] VITALS: PULSE 80
[2024-04-26 06:28] LABS: Glucose,Whole Blood 109 mg/dL (70-110)
[2024-04-26 08:10] VITALS: BP 143/72; RESP 17; TEMP 97.8
[2024-04-26] MEDS: ANASTROZOLE 1 MG TAB PO SCH (08:18)
[2024-04-26 08:36] LABS: Basophils # (A) 0.04 X 10*3/uL (0.00-0.10); Basophils % (A) 0.4 %; Eosinophils # (A) 0.03 X 10*3/uL (0.04-0.35); Eosinophils % (A) 0.3 %; HGB 13.7 g/dL (13.0-17.0); Lymphocytes # (A) 1.29 X 10*3/uL (0.90-5.00); Lymphocytes % (A) 13.8 %; MCH 33.4 pg (27.0-32.0); MCHC 33.4 g/dL (32.0-37.0); Monocytes # (A) 0.97 X 10*3/uL (0.20-1.00); Monocytes % (A) 10.4 %; NRBC Per 100 WBC 0 X 10*3/uL (0.00-0.01); Neutrophils # (A) 6.98 X 10*3/uL (1.80-7.70); Neutrophils % (A) 74.6 %; Platelet Count 176 X 10*3/uL (140-440); RDW 12.8 % (11.5-14.5); WBC 9.36 X 10*3/uL (4.50-10.00)
[2024-04-26 08:56] LABS: ALT 42 U/L (10-49); AST 47 U/L (14-35); Albumin 2.3 g/dL (3.8-4.9); Albumin/Globulin Ratio 1.28 Ratio (1.60-3.17); Alkaline Phosphatase 125 U/L (41-126); BUN/Creat Ratio 16.43 Ratio (12.00-20.00); Blood Urea Nitrogen 11.5 mg/dL (9.0-27.0); Calcium 7.8 mg/dL (8.7-10.3); Carbon Dioxide 27.6 mmol/L (21.6-31.8); Chloride 99 mmol/L (96-109); Globulin 1.8 g/dL (1.6-3.3); Glucose 136 mg/dL (70-110); Potassium 3.8 mmol/L (3.5-5.5); Sodium 135 mmol/L (135-145); Total Bilirubin 1.1 mg/dL (0.3-1.2); Total Protein 4.1 g/dL (6.2-8.2)
--- NOTE | 2024-04-26 09:25 | P.PN ---
Subjective Progress Note Date: 04/26/24 Principal diagnosis: Right UPJ calculus Patient underwent right ureteroscopy with laser lithotripsy to treat his UPJ calculus yesterday. A stent was placed. He is feeling better today, but does report mild stent discomfort. Objective - Vital Signs Vital signs: Vital Signs Temp 97.8 F 04/26/24 07:15 Pulse 80 04/26/24 08:20 Resp 17 04/26/24 08:20 BP 143/72 04/26/24 07:15 Pulse Ox 93 L 04/26/24 07:15 FiO2 Intake & Output 04/25/24 04/26/24 04/26/24 18:59 06:59 18:59 Intake Total 910 222 Output Total 850 Balance 60 222 Intake: IV 750 Intake, IV Titration 160 Amount Lactated Ringers 1,000 ml 160 @ 20 mls/hr IV .Q24H [facility] Rx#:[id number] Oral 222 Output: Urine 850 Estimated Blood Loss 0 Other: Voiding Method Toilet Toilet Urinal Urinal - Constitutional General appearance: Present: average body habitus, cooperative, no acute distre ss - Psychiatric Psychiatric: Present: A&O x's 3 - Labs CBC & Chem 7: 04/26/24 03:19 04/26/24 03:19 Labs: Abnormal Lab Results - Last 24 Hours (Table) 04/24/24 04/25/24 04/25/24 Range/Units 15:13 12:39 16:23 RBC (4.40-5.60) X 10*6/uL MCV (80.0-97.0) FL MCH (27.0-32.0) pg Immature Gran # (0.00-0.04) X 10*3/uL Eosinophils # (0.04-0.35) X 10*3/uL Glucose (70-110) mg/dL POC Glucose (mg/dL) 132 H 175 H (70-110) mg/dL Calcium (8.7-10.3) mg/dL AST (14-35) U/L Total Protein (6.2-8.2) g/dL Albumin (3.8-4.9) g/dL Albumin/Globulin Ratio (1.60-3.17) Ratio Vit D 1,25-Dihydroxy 89 H (20 - 79) pg/mL 04/25/24 04/26/24 04/26/24 Range/Units 22:10 03:19 03:19 RBC 4.10 L (4.40-5.60) X 10*6/uL MCV 100.0 H (80.0-97.0) FL MCH 33.4 H (27.0-32.0) pg Immature Gran # 0.05 H (0.00-0.04) X 10*3/uL Eosinophils # 0.03 L (0.04-0.35) X 10*3/uL Glucose 136 H (70-110) mg/dL POC Glucose (mg/dL) 144 H (70-110) mg/dL Calcium 7.8 L (8.7-10.3) mg/dL AST 47 H (14-35) U/L Total Protein 4.1 L (6.2-8.2) g/dL Albumin 2.3 L (3.8-4.9) g/dL Albumin/Globulin Ratio 1.28 L (1.60-3.17) Ratio Vit D 1,25-Dihydroxy (20 - 79) pg/mL Microbiology - Last 24 Hours (Table) 04/24/24 08:35 Urine Culture - Final Urine,Voided Assessment and Plan (1) Calculus of ureter Current Visit: Yes Status: Acute Code(s): N20.1 - CALCULUS OF URETER SNOMED Code(s): 50053943 Plan: Patient is urologically stable for discharge. He has been advised to continue tamsulosin, as this has been shown to decrease stent discomfort. Unfortunately, he cannot be given Toradol due to the fact that he takes Eliquis. He will undergo office cystoscopy with stent removal in [address] to [address] Hernandez.
[2024-04-26] MEDS: polyethylene glycoL 3350 17 GM POWD.PACK PO PRN (09:34)
[2024-04-26] MEDS: TESTOSTERONE CYPIONATE 200 MG/ML 1ML VIAL IM SCH (10:22)
[2024-04-26 11:44] LABS: Glucose,Whole Blood 123 mg/dL (70-110)
[2024-04-26] MEDS ORDERED: APIXABAN 5 MG TAB PO SCH (14:00)
--- NOTE | 2024-04-26 15:07 | P.DS ---
Providers Date of admission: 04/23/24 22:42 Attending physician: Carter Soliman MD Consults: 04/24/24 01:26 Consult Physician Urgent Consulting Provider: Jeff George Consult Reason/Comments: Nephrolithiasis Do you want consulting provider notified?: Yes Primary care physician: Ernie Torres [place] [facility] Course: Hospital Course: Patient is a 63-year-old male with a PMH of DVT on Eliquis, type II DM, and morbid obesity who presents to the emergency room with complaints of lower extremity swelling with nausea and vomiting. Patient reports that he was started on Ozempic roughly 6 months ago. He also reports that he developed nausea and vomiting roughly 4 months ago which he did not quite attribute to the Ozempic, although does state that his dose was gradually increased during this time. In the emergency room and abdominal/pelvis CT revealed right renal calculus 16mm with adjacent inflammation, severe hepatic steatosis, cholelithiasis, and abdominal ascites. Chest CTA revealed bilateral pleural effusions, trace. Bilateral lower extremity venous Doppler was negative for DVT. EKG revealed sinus rhythm at 94 bpm with an incomplete right bundle branch block with T wave inversion in leads II, 3, aVF. Laboratory evaluation was remarkable for leukocytosis of 11.3, MCV 102.6, sodium 134, potassium 3.2, glucose 173, magnesium 1.5, total bilirubin 2.6, AST 140, ALT 76, alk phos 174, troponin less than 0.012, proBNP 238, with albumin of 2.7. Patient is admitted for evaluation of anasarca which is suspected due to hypoalbuminemia in the setting of malnutrition, transaminitis and intractable nausea and vomiting suspected due to Ozempic use. Ozempic was discontinued, dietitian was consulted, and patient was given thiamine and multivitamins and Zofran. Urology was consulted for renal stone found on CT. Urology recommended elective ureteroscopy with laser lithotripsy and patient agreed to undergo procedure. Oral furosemide and Aldactone prescribed for generalized swelling. Diet modification was also advised with 2 g of salt restriction 1.5 L fluid restriction and alcohol intake cessation. Gallbladder ultrasound done and showed cholelithiasis with wall thickening. Patient symptoms improved throughout hospital stay and no new complications occurred. Patient's transaminase levels also improved throughout stay. Patient discharged today and was prescribed Aldactone 50 mg p.o. and furosemide 40 mg p.o. Eliquis was discontinued. Patient advised to continue diet modifications to follow-up with PCP, general surgery for cholelithiasis, GI for transaminitis and urology for stent removal. Final Diagnosis: #. Anasarca, due to hypoalbuminemia in setting of malnutrition and protein- losing enteropathy, improving #. Intractable nausea and vomiting, suspected due to GLP-1 agonist use, improving #. Hyperbilirubinemia with transaminitis, suspect due to alcohol abuse in setting of GLP-1 agonist use which may also be a causative factor, improving #. Hypokalemia and hypomagnesemia, resolved #. Macrocytosis, likely due to poor oral intake and nutrient deficiency, improving Physical examination: Vital signs reviewed General: non toxic, no distress Derm: no unusual rashes/lesions, warm Head: atraumatic, normocephalic, symmetric Eyes: EOMI, anicteric sclera, pupils equal round reactive to light ENT: Nose and ears atraumatic Neck: No cervical lymphadenopathy, trachea midline, supple Mouth: no lip lesion, mucus membranes moist Cardiovascular: S1S2 reg, no murmur Lungs: CTA bilateral, no rhonchi, no rales, no accessory muscle use Abdominal: soft, nondistended, nontender to palpation, no guarding Ext: muscle strength 5 out of 5 in all 4 extremities grossly, no gross muscle atrophy, no contractures, positive dorsalis pedis pulse bilateral, anasarca with 1+ pitting edema extending to thighs Neuro: CN II-XI grossly intact, no gross focal neuro deficits Psych: Alert, oriented, appropriate affect and mood I saw and evaluated the patient during the patel and critical portions of this encounter, and discussed the case in detail with the resident author of this note, I agree with the Assessment and Plan, and my changes, if any, are noted below. Feeling better. Diuresing well. Prescribed Aldactone and Lasix on discharge. Follow up with PCP within 1-2 days of discharge, GI within 1 week of discharge, Surgery for symptomatic cholelithiasis within 1 week, Urology for stent removal within 10 days of discharge. Takes Eliquis for DVT diagnosed 6-7 years ago, advised to stop taking until follow up with PCP. Advised high protein diet, 2g salt restriction, 1.5L fluid restriction. Patient Condition at Discharge: Stable Plan - Discharge Summary Discharge Rx Participant: No New Discharge Prescriptions: New Spironolactone [Aldactone] 50 mg PO DAILY #60 tab Furosemide [Lasix] 40 mg PO DAILY #30 tab Continue Anastrozole [Arimidex] 1 mg PO SUWE Omeprazole [PriLOSEC] 20 mg PO DAILY Testosterone Cypionate [Depo-Testosterone] 100 mg IM WE Simvastatin 10 mg PO DAILY Montelukast [Singulair] 10 mg PO DAILY Finasteride [Proscar] 5 mg PO DAILY Tamsulosin [Flomax] 0.4 mg PO DAILY Eszopiclone [Lunesta] 3 mg PO HS PRN PRN Reason: Insomnia Empagliflozin [Jardiance] 25 mg PO DAILY Semaglutide [Ozempic] 2 mg SQ WE Gabapentin 600 mg PO DAILY PRN PRN Reason: Pain Discontinued Apixaban [Eliquis] 5 mg PO DAILY Discharge Medication List Anastrozole [Arimidex] 1 mg PO SUWE 04/02/21 [History] Finasteride [Proscar] 5 mg PO DAILY 04/02/21 [History] Montelukast [Singulair] 10 mg PO DAILY 04/02/21 [History] Simvastatin 10 mg PO DAILY 04/02/21 [History] Testosterone Cypionate [Depo-Testosterone] 100 mg IM WE 04/02/21 [History] Empagliflozin [Jardiance] 25 mg PO DAILY 04/24/24 [History] Eszopiclone [Lunesta] 3 mg PO HS PRN 04/24/24 [History] Gabapentin 600 mg PO DAILY PRN 04/24/24 [History] Omeprazole [PriLOSEC] 20 mg PO DAILY 04/24/24 [History] Semaglutide [Ozempic] 2 mg SQ WE 04/24/24 [History] Tamsulosin [Flomax] 0.4 mg PO DAILY 04/24/24 [History] Furosemide [Lasix] 40 mg PO DAILY #30 tab 04/26/24 [Rx] Spironolactone [Aldactone] 50 mg PO DAILY #60 tab 04/26/24 [Rx] Follow up Appointment(s)/Referral(s): Ernie Pop MD [Primary Care Provider] - 1-2 days (office not answering Please call to schedule appointment ) Terell Amin DO [Doctor of Osteopathic Medicine] - 05/09/24 8:45 am Suma Singh MD [STAFF PHYSICIAN] - 1 Week (Office not answering Please call to schedule appointment ) Jeremy Hernandez MD [STAFF PHYSICIAN] - 05/04/24 10:40 am (cystoscopy with stent removal. ) Activity/Diet/Wound Care/Special Instructions: Follow-up with Dr. Hernandez in 10 days for office cystoscopy with stent removal. Follow up with PCP, GI and General Surgery (cholelithiasis) Diet Changes: 2g salt restriction 1.5L fluid restriction Avoid alcohol Discharge Disposition: HOME SELF-CARE
[2024-04-27] MEDS ORDERED: SPIRONOLACTONE 25 MG TAB PO SCH (09:00)
== END 2024-04-26 14:10 | disposition home or self-care (01) | DRG 988 ==
LOC: EC 18:27 → 4SSUR 22:42
PROVIDERS: ADMIT Internal Medicine; ATTEND Internal Medicine
PROC: 0TF78ZZ Fragmentation in Left Ureter, Via Natural or Artificial Opening Endoscopic (ICD-10-PCS; principal; 2024-04-25 10:00)
PROC: 0T768DZ Dilation of Right Ureter with Intraluminal Device, Via Natural or Artificial Opening Endoscopic (ICD-10-PCS; 2024-04-25 10:00)
DX: E46 Unspecified protein-calorie malnutrition (principal); K90.49 Malabsorption due to intolerance, not elsewhere classified; N20.1 Calculus of ureter; R18.8 Other ascites; E88.09 Other disorders of plasma-protein metabolism, not elsewhere classified; E87.6 Hypokalemia; E83.42 Hypomagnesemia; D75.89 Other specified diseases of blood and blood-forming organs; E11.9 Type 2 diabetes mellitus without complications; E78.5 Hyperlipidemia, unspecified; E86.0 Dehydration; M62.838 Other muscle spasm; I45.10 Unspecified right bundle-branch block; I48.91 Unspecified atrial fibrillation; K80.20 Calculus of gallbladder without cholecystitis without obstruction; K76.0 Fatty (change of) liver, not elsewhere classified; F10.10 Alcohol abuse, uncomplicated; R11.2 Nausea with vomiting, unspecified; T50.995A Adverse effect of other drugs, medicaments and biological substances, initial encounter; Z86.718 Personal history of other venous thrombosis and embolism; Z79.01 Long term (current) use of anticoagulants; Z87.442 Personal history of urinary calculi; Z98.84 Bariatric surgery status; Z79.85 Long-term (current) use of injectable non-insulin antidiabetic drugs; Z68.32 Body mass index [BMI] 32.0-32.9, adult; Z79.84 Long term (current) use of oral hypoglycemic drugs; Z79.899 Other long term (current) drug therapy; Z82.5 Family history of asthma and other chronic lower respiratory diseases
CPT/HCPCS: 36415; 71275; 74177; 76705; 80053; 80061; 81001; 82365; 82607; 82652; 82747; 83735; 83880; 84100; 84134; 84443; 84484; 85025; 85379; 85610; 85730; 87086; 93306; 93970; 94760; 96365; 96375; 99285